=== PATIENT | male | born 1975 | race Two or more races ===

== ENCOUNTER → 2020-09-09 09:22 | Outpatient (BNVA) | payer SELFPAY | PROVIDERS: PCP Nurse Practitioner Family; Visit Provider Physician Assistant Medical | DX: Z02.79 Encounter for issue of other medical certificate (principal) ==

== ENCOUNTER 2022-02-13 09:02 | Inpatient (IN) | payer BC, SELFPAY ==
[2022-02-13] VITALS (7 sets, daily range): BP systolic 119–176; BP diastolic 79–103; PULSE 77–85; RESP 16–20; TEMP 36.9–37.1; O2SAT 95–97; BMI 33.9
--- NOTE | ~2022-02-13 | CT_ITS ---
EXAMINATION: CT ABDOMEN AND PELVIS WITH CONTRAST CLINICAL INFORMATION: lower abdominal pain. WBC 16,000 COMPARISON: None. TECHNIQUE: Multidetector volumetric imaging was performed from the superior aspect of the liver through the pubic symphysis following administration of 85 mL Omnipaque 300 intravenous contrast. Sagittal and coronal reformatted images were obtained on the technologist workstation.. This CT examination was performed using dose optimization techniques as appropriate, variously including the following: *Automated exposure control *Adjustment of mA and/or kV according to patient size (this includes techniques or standardized protocols for targeted exams where dose is matched to indication/reason for exam; i.e. extremities or head) *Use of iterative reconstruction technique DLP: 997 mGy-cm FINDINGS: LUNG BASES: Patchy airspace changes in the dependent lung bases more likely reflecting atelectasis. Atypical infectious etiology cannot be excluded. LIVER, GALLBLADDER, AND BILIARY TREE: Diffuse fatty infiltration the liver but no focal hepatic lesion nor biliary ductal dilatation. Mild focal fatty sparing adjacent to the gallbladder fossa. The gallbladder is unremarkable with no evidence of radiopaque gallstones, gallbladder wall thickening, or obvious pericholecystic inflammatory changes. PANCREAS: Unremarkable. SPLEEN: Unremarkable. ADRENAL GLANDS: Unremarkable. KIDNEYS AND URETERS: The kidneys are normal in size, shape, and attenuation. No hydronephrosis, hydroureter, or calculi seen. No perinephric stranding. BLADDER: Unremarkable. GASTROINTESTINAL TRACT: Few scattered colonic diverticula are noted. I do not appreciate any colonic wall thickening or pericolonic inflammatory changes. The appendix measures up to 0.7 cm in the appendiceal mid appendix. There is a small amount of periappendiceal fluid present. ABDOMINAL WALL: No significant hernia is appreciated. LYMPHOVASCULAR STRUCTURES: No lymphadenopathy. The aorta is unremarkable. PELVIC VISCERA: Unremarkable. OSSEOUS STRUCTURES: Unremarkable. CT/CT abdomen pelvis w IV con IMPRESSION: Appendix measures up to 0.7 cm in maximal diameter within the mid appendix. There is a small amount of periappendiceal fluid present. Early appendicitis cannot be excluded with this appearance and should be clinically correlated. Diffuse fatty infiltration liver. Patchy groundglass airspace changes at the visualized lung bases more likely due to atelectasis. Atypical infectious etiology considered less likely.
[2022-02-13 12:12] LABS: MANUAL DIFF FLAG NO
[2022-02-13 12:14] LABS: Basophils Percent Auto 0.2 % (0-2); Eosinophils Absolute Auto 0.1 X10*3/uL (0.0-0.4); Eosinophils Percent Auto 0.3 % (0-4); Hematocrit 51.3 % (42.0-52.0); Hemoglobin 17.6 g/dl (14.0-18.0); Imm Gran Abs Auto 0.09 X10*3/uL (0.00-0.03); Imm Gran Pct Auto 0.6 % (0.0-0.4); Lymphocytes Absolute Auto 1.8 X10*3/uL (1.2-4.9); Lymphocytes Percent Auto 11.2 % (20-40); Mean Corpuscular HGB Conc 34.3 g/dl (31.0-36.0); Mean Corpuscular Hemoglobin 27.2 pg (27.0-33.0); Mean Corpuscular Volume 79.4 fL (80.0-98.0); Mean Platelet Volume 10.5 fL (9.4-12.4); Monocytes Absolute Auto 0.7 X10*3/uL (0.1-1.2); Monocytes Percent Auto 4.4 % (2-11); Neutrophils Absolute Auto 13.6 x10*3/uL (2.0-8.3); Neutrophils Percent Auto 83.3 % (45-73); Platelet Count 234 X10*3/uL (160-400); Red Blood Count 6.46 X10*6/uL (4.60-5.80); Red Cell Distribution Width 13.8 % (11.0-16.0); White Blood Count 16.3 X10*3/uL (4.8-10.8)
[2022-02-13 12:29] LABS: COVID-19 Test Negative (Negative)
[2022-02-13 12:38] LABS: Alanine Aminotransferase 61 U/L (0-40); Albumin Level 4.9 g/dL (3.5-5.0); Alkaline Phosphatase 61 U/L (39-117); Anion Gap 18 (12-20); Aspartate Amino Transferase 44 U/L (5-37); Bilirubin Direct 0.4 mg/dL (0.0-0.5); Bilirubin Total 0.9 mg/dL (0.0-1.0); Blood Urea Nitrogen 13 mg/dL (9-16); Calcium 9.7 mg/dL (8.4-10.2); Carbon Dioxide 26 mmol/L (22-29); Chloride 103 mmol/L (96-108); Creatinine Clr Calc Pharmacy 116.6; Estimated Glomerular Filt Rate > 60; Glucose Random 130 mg/dL (60-115); Potassium 4.5 mmol/L (3.3-5.1); Sodium 142 mmol/L (135-145); Total Protein 7.7 g/dL (6.5-8.0)
[2022-02-13 14:21] LABS: Appearance Urine Clear; Color Urine Dark Yellow; Glucose Urine UA Negative (Negative); Leukocyte Esterase Urine Negative (Negative); Nitrite Urine Negative (Negative); PH 5.5 (5.0-9.0); Specific Gravity - Urine 1.025 (1.005-1.025); Urine Blood Negative (Negative); Urine Ketones Negative (Negative); Urine Protein Trace mg/dL (Neg-Trace)
--- NOTE | 2022-02-13 15:07 | ED_ITS ---
HPI - Abdominal Pain General Chief Complaint: Abdominal Pain Stated Complaint: abd pain from [facility] Time Seen by Provider: 02/13/22 13:35 Source: patient Mode of arrival: ambulatory Limitations: no limitations History of Present Illness HPI narrative: 46-year-old male healthy presents to ED for lower abdominal pain that began since 03:00. Patient states pain woke her from sleep. Patient denies any dysuria, hematuria, diarrhea, nausea or vomiting. Patient denies any fever or chills. Patient states 1st time having this pain. Related Data Allergies Allergy/AdvReac Type Severity Reaction Status Date / Time No Known Allergies Allergy Verified 02/13/22 13:41 Review of Systems Review of Systems Abdominal pain Yes all other systems are reviewed and are negative [facility] Social History Social History Patient Tobacco Use Status: Never used Tobacco Use of substances other than those prescribed or required for medical reasons: No Advance Directives: No Advance Directives Information Provided: No Physical Exam ED Vital Signs: Vital Signs - 24 hr 02/13/22 09:08 02/13/22 13:44 02/13/22 15:14 Temperature 98.6 F 98.7 F Pulse Rate 77 85 83 Respiratory Rate 16 18 20 Blood Pressure 176/103 H 151/95 H 119/79 Pulse Oximetry 97 97 97 Oxygen Delivery Method Room Air Room Air Room Air 02/13/22 16:37 Temperature 98.4 F Pulse Rate 79 Respiratory Rate 16 Blood Pressure 132/88 Pulse Oximetry 96 Oxygen Delivery Method Room Air BMI result Body Mass Index 33.9 Const General: cooperative, healthy appearing, comfortable, no acute distress, well developed, alert, awake and Physically active Orientation/consciousness: oriented to time and patient oriented x3 HENID Head: Yes normal to inspection, Yes No palpable skull fracture present, Yes normocephalic, Yes atraumatic and No abrasion Eyes General: appearance normal, both eyes and all related structures Neck Neck: Yes normal visual inspection and Yes full ROM Chest Chest palpation & inspection: normal inspection of the chest and normal palpation of entire chest wall Resp Effort & Inspection: normal respiratory effort and able to speak in complete sentences Auscultation: clear to auscultation bilaterally Cardio Jugular venous distension: no JVD Heart sounds: S1 normal heart sound present and S2 normal heart sound present GI Inspection: Yes normal to inspection and No abdominal wall ecchymosis Palpation (GI): Soft to palpation, not firm, Tenderness to palpation present (GI) in the LLQ and in the RLQ, no guarding and not rigid General: No CVA tenderness and Yes no CVA tenderness Back/Spine/Pelvis Back: no CVA tenderness, No CVA tenderness and No back tenderness Skin General skin exam: no rashes or lesions noted and elasticity normal Neuro General: oriented to time, patient oriented x3 and gait normal Cranial nerves: Yes CN's II-XII intact bilaterally Extrem General: Yes normal to inspection and Yes full ROM Psych Appearance: grossly normal, well kempt and not disheveled Course Course Course Narrative: Labs ordered and UA. Morphine ordered Reevaluation(s) Reevaluation #1: Or blood cell count 16,000. UA negative for blood or infection. Will send for CT scan. SInged out LEO Schmitt Time: 15:25 MDM - Abdominal Pain Lab Data Result diagrams: 02/13/22 12:08 02/13/22 12:08 Labs: Lab Results 02/13/22 02/13/22 02/13/22 Range/Units 12:08 12:08 12:08 WBC 16.3 H (4.8-10.8) X10*3/uL RBC 6.46 H (4.60-5.80) X10*6/uL Hgb 17.6 (14.0-18.0) g/dl Hct 51.3 (42.0-52.0) % MCV 79.4 L (80.0-98.0) fL MCH 27.2 (27.0-33.0) pg MCHC 34.3 (31.0-36.0) g/dl RDW 13.8 (11.0-16.0) % Plt Count 234 (160-400) X10*3/uL MPV 10.5 (9.4-12.4) fL Immature Gran % (Auto) 0.6 H (0.0-0.4) % Neut % (Auto) 83.3 H (45-73) % Lymph % (Auto) 11.2 L (20-40) % [place] % (Auto) 4.4 (2-11) % Eos % (Auto) 0.3 (0-4) % Baso % (Auto) 0.2 (0-2) % Lymph # (Auto) 1.8 (1.2-4.9) X10*3/uL [place] # (Auto) 0.7 (0.1-1.2) X10*3/uL Eos # (Auto) 0.1 (0.0-0.4) X10*3/uL Baso # (Auto) 0.0 (0.0-0.2) X10*3/uL Abs Immat Gran (auto) 0.09 H (0.00-0.03) X10*3/uL Absolute Neuts (auto) 13.6 H (2.0-8.3) x10*3/uL Absolute Nucleated RBC 0.000 (0.0-0.012) X10*3/uL Nucleated RBC % (auto) 0.0 (0.0-0.2) /100WBC Sodium 142 (135-145) mmol/L Potassium 4.5 (3.3-5.1) mmol/L Chloride 103 (96-108) mmol/L Carbon Dioxide 26 (22-29) mmol/L Anion Gap 18 (12-20) BUN 13 (9-16) mg/dL Creatinine 1.04 (0.5-1.4) mg/dL Estim Creat Clear Calc 116.6 Estimated GFR > 60 Random Glucose 130 H (60-115) mg/dL Lactic Acid (0.5-2.0) mmol/L Calcium 9.7 (8.4-10.2) mg/dL Total Bilirubin 0.9 (0.0-1.0) mg/dL Direct Bilirubin 0.4 (0.0-0.5) mg/dL AST 44 H (5-37) U/L ALT 61 H (0-40) U/L Alkaline Phosphatase 61 (39-117) U/L Total Protein 7.7 (6.5-8.0) g/dL Albumin 4.9 (3.5-5.0) g/dL Urine Color Urine Appearance Urine pH (5.0-9.0) Ur Specific [place] (1.005-1.025) Urine Protein (Neg-Trace) mg/dL Urine Glucose (UA) (Negative) mg/dL Urine Ketones (Negative) mg/dL Urine Blood (Negative) Urine Nitrite (Negative) Ur Leukocyte Esterase (Negative) COVID-19 (FÁTIMA) Negative (Negative) COVID-19 Clin Com See Note 02/13/22 02/13/22 Range/Units 14:12 14:14 WBC (4.8-10.8) X10*3/uL RBC (4.60-5.80) X10*6/uL Hgb (14.0-18.0) g/dl Hct (42.0-52.0) % MCV (80.0-98.0) fL MCH (27.0-33.0) pg MCHC (31.0-36.0) g/dl RDW (11.0-16.0) % Plt Count (160-400) X10*3/uL MPV (9.4-12.4) fL Immature Gran % (Auto) (0.0-0.4) % Neut % (Auto) (45-73) % Lymph % (Auto) (20-40) % [place] % (Auto) (2-11) % Eos % (Auto) (0-4) % Baso % (Auto) (0-2) % Lymph # (Auto) (1.2-4.9) X10*3/uL [place] # (Auto) (0.1-1.2) X10*3/uL Eos # (Auto) (0.0-0.4) X10*3/uL Baso # (Auto) (0.0-0.2) X10*3/uL Abs Immat Gran (auto) (0.00-0.03) X10*3/uL Absolute Neuts (auto) (2.0-8.3) x10*3/uL Absolute Nucleated RBC (0.0-0.012) X10*3/uL Nucleated RBC % (auto) (0.0-0.2) /100WBC Sodium (135-145) mmol/L Potassium (3.3-5.1) mmol/L Chloride (96-108) mmol/L Carbon Dioxide (22-29) mmol/L Anion Gap (12-20) BUN (9-16) mg/dL Creatinine (0.5-1.4) mg/dL Estim Creat Clear Calc Estimated GFR Random Glucose (60-115) mg/dL Lactic Acid 2.0 (0.5-2.0) mmol/L Calcium (8.4-10.2) mg/dL Total Bilirubin (0.0-1.0) mg/dL Direct Bilirubin (0.0-0.5) mg/dL AST (5-37) U/L ALT (0-40) U/L Alkaline Phosphatase (39-117) U/L Total Protein (6.5-8.0) g/dL Albumin (3.5-5.0) g/dL Urine Color Dark Yellow Urine Appearance Clear Urine pH 5.5 (5.0-9.0) Ur Specific [place] 1.025 (1.005-1.025) Urine Protein Trace (Neg-Trace) mg/dL Urine Glucose (UA) Negative (Negative) mg/dL Urine Ketones Negative (Negative) mg/dL Urine Blood Negative (Negative) Urine Nitrite Negative (Negative) Ur Leukocyte Esterase Negative (Negative) COVID-19 (FÁTIMA) (Negative) COVID-19 Clin Com Discharge Plan Discharge Clinical Impression: Abdominal pain Patient Disposition: Still a Patient
[2022-02-13] MEDS: ondansetron HCL 4 MG/2 ML VIAL IVPUSH ×2 (15:11→19:11)
[2022-02-13] MEDS: Morphine Sulfate 4 MG/ML CARTRIDGE IVPUSH ×2 (15:11→21:42)
[2022-02-13] MEDS: 0.9 % Sodium Chloride 1,000 ML 999 ML IV (15:12)
[2022-02-13] MEDS: iohexoL 350 MG/ML 100 ML INFUS..BTL IV (18:04)
[2022-02-13] MEDS: HYDROmorphone HCl 1 MG/ML SYRINGE IVPUSH (19:11)
[2022-02-13] MEDS: Piperacillin Sodium/Tazobactam 3.375 GM in 0.9 % Sodium Chloride 50 ML IV (19:11)
--- NOTE | 2022-02-13 19:18 | PC.NURSE ---
pt reporting 10/10 after initial morphine dose, provider aware. vss, medicated per provider order, 1L NS running. 20 G IV L forearm.
[2022-02-13] MEDS: Lactated Ringers 1,000 ML 100 ML IV (20:41)
--- NOTE | 2022-02-13 22:45 | PC.NURSE ---
RN-RN report given.
[2022-02-13] MEDS: Ketorolac Tromethamine 30 MG/ML VIAL IVPUSH (23:52)
[2022-02-13] MEDS: 0.9 % Sodium Chloride Flush 3 ML SYRINGE IVFLUSH (23:53)
[2022-02-14] VITALS (14 sets, daily range): BP systolic 101–164; BP diastolic 64–97; PULSE 65–85; RESP 12–18; TEMP 36.2–37.3; O2SAT 91–97
[2022-02-14] MEDS: Piperacillin Sodium/Tazobactam 3.375 GM in 0.9 % Sodium Chloride 50 ML IV ×2 (01:26→06:19)
[2022-02-14] MEDS: Morphine Sulfate 4 MG/ML CARTRIDGE IVPUSH ×2 (06:19→17:18)
[2022-02-14] MEDS: Lactated Ringers 1,000 ML 100 ML IV (06:20)
--- NOTE | 2022-02-14 07:19 | PM.HPGS ---
History of Present Illness History of Present Illness Date of Service: 02/16/22 Chief complaint: Acute appendicitis Narrative: Flaco Garnica is a 47 year old male who came to the emergency room yesterday afternoon because of abdominal pain. He says this started early yesterday morning at around 03:00. He said he woke up from sleep because of what he described as lower abdominal pain both on the left lower quadrant on the right lower quadrant.. This was constant and seemed to have persisted throughout the day. He denied any nausea or vomiting. He denies any diarrhea or constipation. He said he has never had any similar episodes in the past. He says his pain is currently on the right lower quadrant. He denies any fever or chills. He is prediabetic and is hypertensive. Review of Systems Constitutional: Constitutional: Denies chills and Denies fever(s) Cardiovascular: Cardiovascular: Denies chest pain, Denies dyspnea and Denies dyspnea on exertion Respiratory: Respiratory: Denies cough, Denies dyspnea and Denies dyspnea on exertion Gastrointestinal: Gastrointestinal: Denies hematochezia and Denies change in bowel habits Genitourinary: Genitourinary: Denies hematuria and Denies difficulty urinating Musculoskeletal: Musculoskeletal: Reports back pain and Denies limited range of motion Neurologic: Denies focal weakness and Denies convulsions Psychiatric: Psychiatric: Denies depression and Denies mood swings PMFSH Past Medical History Medical History (Updated 02/14/22 @ 07:22 by Jared Castanon MD) Hypertension Pre-diabetes Social History Social History Household Members: Significant Other and Children Housing: House Do you presently have visiting nurse or other home services: No Patient Tobacco Use Status: Never used Tobacco Use of substances other than those prescribed or required for medical reasons: No Currently Displaying Signs/Symptoms of Drug Intoxication Withdrawal: No Have you been hit, kicked, punched, or otherwise hurt by someone within the past year? If so, by whom?: No Do you feel safe in your current relationship?: Yes Is there a partner from a previous relationship who is making you feel unsafe now?: No Are you made to feel afraid or neglected: No Are you DNR?: No Advance Directives: No Advance Directives Information Provided: No Do you have thoughts of harming others: None Do you have a plan to hurt others: No Plan Recently lost weight without trying: Yes How much weight loss: 14-23 pounds Eating poorly because of decreased appetite: No Nutrition screen score: 4 Nutrition Risks: No Nutritional Risk service: No Current occupational status: employed Meds Allergies Allergy/AdvReac Type Severity Reaction Status Date / Time No Known Allergies Allergy Verified 02/13/22 13:41 Active Medications: Current Medications Heparin Sodium (Porcine) (Heparin Sodium,Porcine 5,000 Unit/Ml Vial) 5,000 unit SUBCUT Q8H [facility] Piperacillin Sod/Tazobactam (Sod 3.375 gm/ Sodium Chloride) 50 mls @ 100 mls/hr IV Q6H [facility] Last Admin: 02/14/22 06:19 Dose: 100 mls/hr Lactated Ringer's (Lr) 1,000 mls @ 100 mls/hr IV .Q10H [facility] Stop: 02/14/22 15:44 Last Admin: 02/14/22 06:20 Dose: 100 mls/hr Ketorolac Tromethamine (Ketorolac Tromethamine 30 Mg/Ml Vial) 30 mg IVPUSH Q6H PRN PRN Reason: Pain, Moderate (Pain Scale 4-6 Last Admin: 02/13/22 23:52 Dose: 30 mg Morphine Sulfate (Morphine Sulfate 4 Mg/Ml Cartridge) 4 mg IVPUSH Q4H PRN; Protocol PRN Reason: Pain, Severe (Pain Scale 7-10) Last Admin: 02/14/22 06:19 Dose: 4 mg Ondansetron HCl (Ondansetron Hcl 4 Mg/2 Ml Vial) 4 mg IVPUSH Q8H PRN PRN Reason: Nausea and Vomiting Sodium Chloride (0.9 % Sodium Chloride Flush 3 Ml Syringe) 3 ml IVFLUSH QSHIFT [facility] Last Admin: 02/13/22 23:53 Dose: 3 ml Home Medications Medication Instructions Recorded Confirmed Last Taken Type albuterol sulfate 90 mcg/actuation 2 puff inhalation Q6H PRN dyspnea 02/14/22 02/14/22 02/12/22 History aerosol inhaler amlodipine 5 mg tablet 1 tab PO DAILY 02/14/22 02/14/22 02/12/22 History fluticasone propionate 50 1 spray intranasal DAILY PRN 02/14/22 02/14/22 02/12/22 History mcg/actuation nasal Allergy Symptoms spray,suspension lisinopril 30 mg tablet 1 tab PO DAILY 02/14/22 02/14/22 02/12/22 History loratadine 10 mg tablet (Claritin) 10 mg PO DAILY 02/14/22 02/14/22 02/12/22 History metformin 500 mg tablet,extended 1 tab PO DAILY 02/14/22 02/14/22 02/12/22 History release 24 hr multivitamin 1 tab PO DAILY 02/14/22 02/14/22 02/12/22 History Physical Exam Vital Signs: Vital Signs: Last Vital Signs Temp 97.1 F 02/14/22 04:00 Pulse 75 02/14/22 04:00 Resp 18 02/14/22 04:00 BP 123/65 02/14/22 04:00 Pulse Ox 96 02/14/22 04:00 O2 Del Method 02/14/22 04:00 BMI result Body Mass Index 33.9 Const: General: comfortable and no acute distress Orientation/consciousness: patient oriented x3 Neck: Neck: Yes no lymphadenopathy Resp: Auscultation: clear to auscultation bilaterally Cardio: Rhythm: regular rhythm GI: Other: direct tenderness on right lower quadrant Palpation (GI): Soft to palpation, Tenderness to palpation present (GI), no guarding and not rigid Neuro: General: patient oriented x3 and no focal motor deficits Results Results Labs: Short CBC 02/13/22 Range/Units 12:08 WBC 16.3 H (4.8-10.8) X10*3/uL Hgb 17.6 (14.0-18.0) g/dl Hct 51.3 (42.0-52.0) % Plt Count 234 (160-400) X10*3/uL BMP 02/13/22 12:08 Sodium 142 Potassium 4.5 Chloride 103 Carbon Dioxide 26 BUN 13 Creatinine 1.04 Calcium 9.7 Liver Function 02/13/22 Range/Units 12:08 Total Bilirubin 0.9 (0.0-1.0) mg/dL Direct Bilirubin 0.4 (0.0-0.5) mg/dL AST 44 H (5-37) U/L ALT 61 H (0-40) U/L Alkaline Phosphatase 61 (39-117) U/L Albumin 4.9 (3.5-5.0) g/dL Urine 02/13/22 Range/Units 14:14 Urine Color Dark Yellow Urine Appearance Clear Urine pH 5.5 (5.0-9.0) Ur Specific [place] 1.025 (1.005-1.025) Urine Protein Trace (Neg-Trace) mg/dL Urine Glucose (UA) Negative (Negative) mg/dL Additional studies: Laboratory Results - last 24 hr 02/13/22 02/13/22 02/13/22 12:08 12:08 12:08 WBC 16.3 H RBC 6.46 H Hgb 17.6 Hct 51.3 MCV 79.4 L MCH 27.2 MCHC 34.3 RDW 13.8 Plt Count 234 MPV 10.5 Immature Gran % (Auto) 0.6 H Neut % (Auto) 83.3 H Lymph % (Auto) 11.2 L [place] % (Auto) 4.4 Eos % (Auto) 0.3 Baso % (Auto) 0.2 Lymph # (Auto) 1.8 [place] # (Auto) 0.7 Eos # (Auto) 0.1 Baso # (Auto) 0.0 Abs Immat Gran (auto) 0.09 H Absolute Neuts (auto) 13.6 H Absolute Nucleated RBC 0.000 Nucleated RBC % (auto) 0.0 Sodium 142 Potassium 4.5 Chloride 103 Carbon Dioxide 26 Anion Gap 18 BUN 13 Creatinine 1.04 Estim Creat Clear Calc 116.6 Estimated GFR > 60 Random Glucose 130 H Lactic Acid Calcium 9.7 Total Bilirubin 0.9 Direct Bilirubin 0.4 AST 44 H ALT 61 H Alkaline Phosphatase 61 Total Protein 7.7 Albumin 4.9 Urine Color Urine Appearance Urine pH Ur Specific [place] Urine Protein Urine Glucose (UA) Urine Ketones Urine Blood Urine Nitrite Ur Leukocyte Esterase COVID-19 (FÁTIMA) Negative COVID-19 Clin Com See Note 02/13/22 02/13/22 14:12 14:14 WBC RBC Hgb Hct MCV MCH MCHC RDW Plt Count MPV Immature Gran % (Auto) Neut % (Auto) Lymph % (Auto) [place] % (Auto) Eos % (Auto) Baso % (Auto) Lymph # (Auto) [place] # (Auto) Eos # (Auto) Baso # (Auto) Abs Immat Gran (auto) Absolute Neuts (auto) Absolute Nucleated RBC Nucleated RBC % (auto) Sodium Potassium Chloride Carbon Dioxide Anion Gap BUN Creatinine Estim Creat Clear Calc Estimated GFR Random Glucose Lactic Acid 2.0 Calcium Total Bilirubin Direct Bilirubin AST ALT Alkaline Phosphatase Total Protein Albumin Urine Color Dark Yellow Urine Appearance Clear Urine pH 5.5 Ur Specific [place] 1.025 Urine Protein Trace Urine Glucose (UA) Negative Urine Ketones Negative Urine Blood Negative Urine Nitrite Negative Ur Leukocyte Esterase Negative COVID-19 (FÁTIMA) COVID-19 Clin Com Laboratory Results WBC 16.3 X10*3/uL (4.8-10.8) H 02/13/22 12:08 RBC 6.46 X10*6/uL (4.60-5.80) H 02/13/22 12:08 Hgb 17.6 g/dl (14.0-18.0) 02/13/22 12:08 Hct 51.3 % (42.0-52.0) 02/13/22 12:08 MCV 79.4 fL (80.0-98.0) L 02/13/22 12:08 MCH 27.2 pg (27.0-33.0) 02/13/22 12:08 MCHC 34.3 g/dl (31.0-36.0) 02/13/22 12:08 RDW 13.8 % (11.0-16.0) 02/13/22 12:08 Plt Count 234 X10*3/uL (160-400) 02/13/22 12:08 MPV 10.5 fL (9.4-12.4) 02/13/22 12:08 Immature Gran % (Auto) 0.6 % (0.0-0.4) H 02/13/22 12:08 Neut % (Auto) 83.3 % (45-73) H 02/13/22 12:08 Lymph % (Auto) 11.2 % (20-40) L 02/13/22 12:08 [place] % (Auto) 4.4 % (2-11) 02/13/22 12:08 Eos % (Auto) 0.3 % (0-4) 02/13/22 12:08 Baso % (Auto) 0.2 % (0-2) 02/13/22 12:08 Lymph # (Auto) 1.8 X10*3/uL (1.2-4.9) 02/13/22 12:08 [place] # (Auto) 0.7 X10*3/uL (0.1-1.2) 02/13/22 12:08 Eos # (Auto) 0.1 X10*3/uL (0.0-0.4) 02/13/22 12:08 Baso # (Auto) 0.0 X10*3/uL (0.0-0.2) 02/13/22 12:08 Abs Immat Gran (auto) 0.09 X10*3/uL (0.00-0.03) H 02/13/22 12:08 Absolute Neuts (auto) 13.6 x10*3/uL (2.0-8.3) H 02/13/22 12:08 Absolute Nucleated RBC 0.000 X10*3/uL (0.0-0.012) 02/13/22 12:08 Nucleated RBC % (auto) 0.0 /100WBC (0.0-0.2) 02/13/22 12:08 Sodium 142 mmol/L (135-145) 02/13/22 12:08 Potassium 4.5 mmol/L (3.3-5.1) 02/13/22 12:08 Chloride 103 mmol/L (96-108) 02/13/22 12:08 Carbon Dioxide 26 mmol/L (22-29) 02/13/22 12:08 Anion Gap 18 (12-20) 02/13/22 12:08 BUN 13 mg/dL (9-16) 02/13/22 12:08 Creatinine 1.04 mg/dL (0.5-1.4) 02/13/22 12:08 Estim Creat Clear Calc 116.6 02/13/22 12:08 Estimated GFR > 60 02/13/22 12:08 Random Glucose 130 mg/dL (60-115) H 02/13/22 12:08 Lactic Acid 2.0 mmol/L (0.5-2.0) 02/13/22 14:12 Calcium 9.7 mg/dL (8.4-10.2) 02/13/22 12:08 Total Bilirubin 0.9 mg/dL (0.0-1.0) 02/13/22 12:08 Direct Bilirubin 0.4 mg/dL (0.0-0.5) 02/13/22 12:08 AST 44 U/L (5-37) H 02/13/22 12:08 ALT 61 U/L (0-40) H 02/13/22 12:08 Alkaline Phosphatase 61 U/L (39-117) 02/13/22 12:08 Total Protein 7.7 g/dL (6.5-8.0) 02/13/22 12:08 Albumin 4.9 g/dL (3.5-5.0) 02/13/22 12:08 Urine Color Dark Yellow 02/13/22 14:14 Urine Appearance Clear 02/13/22 14:14 Urine pH 5.5 (5.0-9.0) 02/13/22 14:14 Ur Specific [place] 1.025 (1.005-1.025) 02/13/22 14:14 Urine Protein Trace mg/dL (Neg-Trace) 02/13/22 14:14 Urine Glucose (UA) Negative mg/dL (Negative) 02/13/22 14:14 Urine Ketones Negative mg/dL (Negative) 02/13/22 14:14 Urine Blood Negative (Negative) 02/13/22 14:14 Urine Nitrite Negative (Negative) 02/13/22 14:14 Ur Leukocyte Esterase Negative (Negative) 02/13/22 14:14 COVID-19 (FÁTIMA) Negative (Negative) 02/13/22 12:08 COVID-19 Clin Com See Note 02/13/22 12:08 Impressions Abdomen/Pelvis CT 02/13/22 18:00 IMPRESSION: Appendix measures up to 0.7 cm in maximal diameter within the mid appendix. There is a small amount of periappendiceal fluid present. Early appendicitis cannot be excluded with this appearance and should be clinically correlated. Diffuse fatty infiltration liver. Patchy groundglass airspace changes at the visualized lung bases more likely due to atelectasis. Atypical infectious etiology considered less likely. Assessment and Plan (1) Acute appendicitis: Status: Acute He came in because of abdominal pain and currently his pain and tenderness is on the right lower quadrant. He had leukocytosis and his CAT scan shows mildly dilated appendix at the middle third with periappendiceal fluid and stranding suggestive of early acute appendicitis. I therefore had a long discussion with him about proceed with appendectomy versus nonoperative treatment with IV abx. I explained the technique of laparoscopic appendectomy and possible conversion to open. I reviewed the risks including but not limited to bleeding, infections, bowel injury, injury to the urinary tract, staple line leak, obstruction, risks of anesthesia, as well as the benefits and alternatives. He says he understands and wants to proceed because of his persistent pain. He otherwise is hemodynamically stable and does not appear septic. I have reviewed the CT images with Dr. Murillo of radiology., Quality Stroke Does the patient have a stroke diagnosis?: No VTE Prior VTE?: No VTE Risk Level:: Medical - moderate - high VTE Device Contraindication: N/A - Device Ordered VTE Drug Contraindication: N/A - Med Ordered Procedures Date of Service Date of Service: 02/14/22
--- NOTE | 2022-02-14 08:45 | PHA.MEDREC ---
Pharmacy Consult ? Medication Reconciliation Pharmacy has completed the medication reconciliation. Patient confirmed all medications. Angie Dewey, JoyD
[2022-02-14 08:52] LABS: Hemoglobin 13.8 g/dl (14.0-18.0); Mean Corpuscular HGB Conc 33.7 g/dl (31.0-36.0); Mean Corpuscular Hemoglobin 27.4 pg (27.0-33.0); Mean Corpuscular Volume 81.5 fL (80.0-98.0); Mean Platelet Volume 11.3 fL (9.4-12.4); Platelet Count 172 X10*3/uL (160-400); Red Blood Count 5.03 X10*6/uL (4.60-5.80); Red Cell Distribution Width 13.8 % (11.0-16.0); White Blood Count 6.1 X10*3/uL (4.8-10.8)
[2022-02-14 09:10] LABS: Anion Gap 15 (12-20); Blood Urea Nitrogen 16 mg/dL (9-16); Calcium 8.7 mg/dL (8.4-10.2); Carbon Dioxide 28 mmol/L (22-29); Chloride 103 mmol/L (96-108); Creatinine Clr Calc Pharmacy 105.2; Estimated Glomerular Filt Rate > 60; Glucose Random 122 mg/dL (60-115); Potassium 4.1 mmol/L (3.3-5.1); Sodium 142 mmol/L (135-145)
--- NOTE | 2022-02-14 10:25 | MHC.CM.PN ---
EMR REVIEWED, PT ADMITTE W/EARLY ACUTE APPENDICITIS W/PLAN FOR APPENDECTOMY, CM ATTEMPTED TO MEET W/PT HOWEVER PT OFF UNIT, CM TO REVISIT.
--- NOTE | 2022-02-14 11:19 | P.CONAN_ITS ---
HPI - Anesthesia Eval Consult details Narrative: for appendectomy PMFSH Active Problems Active Problems: All Active Problems (Updated 02/14/22 @ 07:22 by Jared Castanon MD) Hypertension (Acute) Pre-diabetes (Acute) Abdominal pain (Acute) Acute appendicitis (Acute) Past Medical History Medical History (Updated 02/14/22 @ 07:22 by Jared Castanon MD) Hypertension Pre-diabetes Family History Family history of problems with anesthesia: No Surgical History History of Problems with Anesthesia: No Social History Social History Household Members: Significant Other and Children Housing: House Do you presently have visiting nurse or other home services: No Patient Tobacco Use Status: Never used Tobacco Use of substances other than those prescribed or required for medical reasons: No Currently Displaying Signs/Symptoms of Drug Intoxication Withdrawal: No Have you been hit, kicked, punched, or otherwise hurt by someone within the past year? If so, by whom?: No Do you feel safe in your current relationship?: Yes Is there a partner from a previous relationship who is making you feel unsafe now?: No Are you made to feel afraid or neglected: No Are you DNR?: No Advance Directives: No Advance Directives Information Provided: No Do you have thoughts of harming others: None Do you have a plan to hurt others: No Plan Recently lost weight without trying: Yes How much weight loss: 14-23 pounds Eating poorly because of decreased appetite: No Nutrition screen score: 4 Nutrition Risks: No Nutritional Risk Meds Allergies Allergy/AdvReac Type Severity Reaction Status Date / Time No Known Allergies Allergy Verified 02/13/22 13:41 Active Medications: Current Medications Heparin Sodium (Porcine) (Heparin Sodium,Porcine 5,000 Unit/Ml Vial) 5,000 unit SUBCUT Q8H MAXIM Piperacillin Sod/Tazobactam (Sod 3.375 gm/ Sodium Chloride) 50 mls @ 100 mls/hr IV Q6H MAXIM Last Infusion: 02/14/22 07:40 Dose: Infused Lactated Ringer's (Lr) 1,000 mls @ 100 mls/hr IV .Q10H MAXIM Stop: 02/14/22 15:44 Last Infusion: 02/14/22 10:24 Dose: 0 mls/hr Ketorolac Tromethamine (Ketorolac Tromethamine 30 Mg/Ml Vial) 30 mg IVPUSH Q6H PRN PRN Reason: Pain, Moderate (Pain Scale 4-6 Last Admin: 02/13/22 23:52 Dose: 30 mg Morphine Sulfate (Morphine Sulfate 4 Mg/Ml Cartridge) 4 mg IVPUSH Q4H PRN; Protocol PRN Reason: Pain, Severe (Pain Scale 7-10) Last Admin: 02/14/22 06:19 Dose: 4 mg Ondansetron HCl (Ondansetron Hcl 4 Mg/2 Ml Vial) 4 mg IVPUSH Q8H PRN PRN Reason: Nausea and Vomiting Sodium Chloride (0.9 % Sodium Chloride Flush 3 Ml Syringe) 3 ml IVFLUSH [facility] Last Admin: 02/14/22 07:41 Dose: Not Given Home Medications Medication Instructions Recorded Confirmed Last Taken Type albuterol sulfate 90 mcg/actuation 2 puff inhalation Q6H PRN dyspnea 02/14/22 02/14/22 02/12/22 History aerosol inhaler amlodipine 5 mg tablet 1 tab PO DAILY 02/14/22 02/14/22 02/12/22 History fluticasone propionate 50 1 spray intranasal DAILY PRN 02/14/22 02/14/22 02/12/22 History mcg/actuation nasal Allergy Symptoms spray,suspension lisinopril 30 mg tablet 1 tab PO DAILY 02/14/22 02/14/22 02/12/22 History loratadine 10 mg tablet (Claritin) 10 mg PO DAILY 02/14/22 02/14/22 02/12/22 History metformin 500 mg tablet,extended 1 tab PO DAILY 02/14/22 02/14/22 02/12/22 History release 24 hr multivitamin 1 tab PO DAILY 02/14/22 02/14/22 02/12/22 History Exam Exam Date and Time: February 14, 2022 1119 Height,Weight and Vital Signs: Height 6 ft Weight 113.398 kg Last Vital Signs Temp 97.6 F 02/14/22 09:11 Pulse 66 02/14/22 09:11 Resp 18 02/14/22 09:11 BP 155/97 H 02/14/22 09:11 Pulse Ox 96 02/14/22 09:11 O2 Del Method 02/14/22 09:11 Pertinent Lab Results Pertinent Lab Results: Laboratory Tests 02/13/22 02/13/22 02/13/22 12:08 12:08 12:08 WBC 16.3 H RBC 6.46 H Hgb 17.6 Hct 51.3 MCV 79.4 L MCH 27.2 MCHC 34.3 RDW 13.8 Plt Count 234 MPV 10.5 Immature Gran % (Auto) 0.6 H Neut % (Auto) 83.3 H Lymph % (Auto) 11.2 L [place] % (Auto) 4.4 Eos % (Auto) 0.3 Baso % (Auto) 0.2 Lymph # (Auto) 1.8 Granite # (Auto) 0.7 Eos # (Auto) 0.1 Baso # (Auto) 0.0 Abs Immat Gran (auto) 0.09 H Absolute Neuts (auto) 13.6 H Absolute Nucleated RBC 0.000 Nucleated RBC % (auto) 0.0 Sodium 142 Potassium 4.5 Chloride 103 Carbon Dioxide 26 Anion Gap 18 BUN 13 Creatinine 1.04 Estim Creat Clear Calc 116.6 Estimated GFR > 60 Random Glucose 130 H Lactic Acid Calcium 9.7 Total Bilirubin 0.9 Direct Bilirubin 0.4 AST 44 H ALT 61 H Alkaline Phosphatase 61 Total Protein 7.7 Albumin 4.9 Urine Color Urine Appearance Urine pH Ur Specific [place] Urine Protein Urine Glucose (UA) Urine Ketones Urine Blood Urine Nitrite Ur Leukocyte Esterase COVID-19 (FÁTIMA) Negative COVID-19 Clin Com See Note 02/13/22 02/13/22 02/14/22 14:12 14:14 07:53 WBC 6.1 RBC 5.03 D Hgb 13.8 L D Hct 41.0 L D MCV 81.5 MCH 27.4 MCHC 33.7 RDW 13.8 Plt Count 172 D MPV 11.3 Immature Gran % (Auto) Neut % (Auto) Lymph % (Auto) [place] % (Auto) Eos % (Auto) Baso % (Auto) Lymph # (Auto) [place] # (Auto) Eos # (Auto) Baso # (Auto) Abs Immat Gran (auto) Absolute Neuts (auto) Absolute Nucleated RBC 0.000 Nucleated RBC % (auto) 0.0 Sodium Potassium Chloride Carbon Dioxide Anion Gap BUN Creatinine Estim Creat Clear Calc Estimated GFR Random Glucose Lactic Acid 2.0 Calcium Total Bilirubin Direct Bilirubin AST ALT Alkaline Phosphatase Total Protein Albumin Urine Color Dark Yellow Urine Appearance Clear Urine pH 5.5 Ur Specific [place] 1.025 Urine Protein Trace Urine Glucose (UA) Negative Urine Ketones Negative Urine Blood Negative Urine Nitrite Negative Ur Leukocyte Esterase Negative COVID-19 (FÁTIMA) COVID-19 Clin Com 02/14/22 07:53 WBC RBC Hgb Hct MCV MCH MCHC RDW Plt Count MPV Immature Gran % (Auto) Neut % (Auto) Lymph % (Auto) Granite % (Auto) Eos % (Auto) Baso % (Auto) Lymph # (Auto) Granite # (Auto) Eos # (Auto) Baso # (Auto) Abs Immat Gran (auto) Absolute Neuts (auto) Absolute Nucleated RBC Nucleated RBC % (auto) Sodium 142 Potassium 4.1 Chloride 103 Carbon Dioxide 28 Anion Gap 15 BUN 16 Creatinine 1.14 Estim Creat Clear Calc 105.2 Estimated GFR > 60 Random Glucose 122 H Lactic Acid Calcium 8.7 D Total Bilirubin Direct Bilirubin AST ALT Alkaline Phosphatase Total Protein Albumin Urine Color Urine Appearance Urine pH Ur Specific [place] Urine Protein Urine Glucose (UA) Urine Ketones Urine Blood Urine Nitrite Ur Leukocyte Esterase COVID-19 (FÁTIMA) COVID-19 Clin Com Airway Mallampati Class: II TM Dist: >3cm Neck ROM: Full Loose/Missing/Broken Teeth: No Heart: ok Lungs: ok Assessment and Plan Assessment Anesthesia Assessment: Anesthesia Plan Discussed and Chart Reviewed Final Anesthetic Review Family History of Problems with Anesthesia: No History of Problems with Anesthesia: No NPO: Yes ASA Class: II and Emergency Final Preanesthetic Review: No Changes in Pt Med Stat, Meds/Allgs Chart Reviewed, Consent Obtained/Reviewed and Anes Risks/Benef Reviewed Patient Risk: Intermediate Procedure Risk: Intermediate Anesthetic Plan Anesthetic Plan: GA and Agree w/ Assess. and Plan Disposition: Standard PACU
--- NOTE | 2022-02-14 11:59 | MHC.CLN ---
PT REPORTS 14-# WT LOSS ON NURSING ADMISSION ASSESSMENT CONFIRMED WITH PT UBW 240-250# PREVIOUS WT HX 234# CURRENT WT 249# ON ADMISSION BMI 33.9 OBESE FOR HT PT DOES NOT TRIGGER FOR SIGNIFICANT WT LOSS AT THIS TIME CONTINUE CURRENT PLAN
--- NOTE | 2022-02-14 12:26 | P.OP_ITS ---
Operative Note Operative Note Date of Service: 02/14/22 Narrative: Preop diagnosis: Acute appendicitis Postop diagnosis: The same Procedure: Laparoscopic appendectomy Surgeon: Jared Castanon MD certified ophthalmic assistant: JULIÁN Bhandari The patient is a 47-year-old male admitted because of right lower quadrant pain and tenderness with leukocytosis last night. He has CT scan reviewed with the radiologist and there appeared to be periappendiceal fluid along with thickening of the mid part of the appendix. I therefore explained to him that we can proceed with laparoscopic appendectomy acute appendicitis. The other option is to continue IV antibiotic treatment. He said that he would rather proceed with appendectomy. I understood the technique of laparoscopic appendectomy and was the risks benefits, and alternatives. He was brought to the operating room. He was placed supine under general anesthesia via endotracheal tube. A Ruby catheter was inserted. The abdomen was prepped and draped in the usual sterile fashion. a surgical time-out was done. The patient received Cefotan 2 g IV preoperatively. I made a short umbilical incision using blade 15. This was carried down through the full-thickness of the skin subcutaneous fat although with the fasci a. The fascia was incised. The peritoneum was entered. Through this incision a Dusty port introduced. Pneumoperitoneum was introduced to a pressure of 15 mm hg. From here on the rest of procedure was done under vision with the laparoscope. We used a 5 mm 30 degree laparoscope for this procedure. With laparoscopic visualization a proceeded to insert 5 mm ports in the left lower quadrant and the suprapubic margin via small stab incisions. The patient was placed in head-down and [id number] position. Graspers were used to reflect the small bowel loops away from the right lower quadrant until I was able to visualize the cecum. Following the cecum I was able to see the appendix. The appendix was long and part of this was adherent to some small bowel loops. We had divided fine adhesions using the LigaSure. This allowed us to free up the entire appendix. The appendix was retracted to the anterior abdominal wall to put the on stretch. I was able to visualize the base of the appendix. I created a mesenteric window by dividing the mesoappendix with the LigaSure. The base was well-defined be this was actually not inflamed at the base. The appendix did have some jeffrey appendiceal fluid but there was no obvious induration nor significant congestion. I positioned a GI 30 minute stapler across the base of the pending. This was fired at appendix was transected. Completed transection of the appendix by dividing the attached mesentery. The appendix was then retrieved through an endobag through the umbilical incision. I reinserted all ports and insufflated. I examined all 4 quadrants. There was no other pathology. However, there seemed to be some mild erythema of the small bowel loops the right lower quadrant adjacent to where the appendix was. There was no evidence of any bowel injury or any other pathology. ed the omentum to position this right lower quadrant. I observed the area of dissection of the right lower quadrant for hemostasis. The staple line appeared intact. I pull . Once hemostasis was confirmed, I proceeded to then desufflate through the port sites. I removed all ports under vision with the umbilical port removed last. The fascia of the umbilical incision was closed with [id number] Dexon 0 stitch. Skin closure was achieved on all incisions using Dexon 4-0 subcuticular running sutures. Steri-Strips and dressings were applied. All incisions were infiltrated with Marcaine 0.5% for postop analgesia. The procedure was completed The patient tolerated procedure well. There were no immediate complications. Estimated blood loss was less than 20 cc The patient was extubated without difficulty and transferred to the recovery room with stable vital signs..
--- NOTE | 2022-02-14 12:47 | PM.OP ---
Brief Operative Note Date of Service: 02/14/22 <Risa Bhandari PA-C - Last Filed: 02/14/22 12:48> Pre-op diagnosis: acute appendicitis <Risa Bhandari PA-C - Last Filed: 02/14/22 12:48> Post-op diagnosis: same <Risa Bhandari PA-C - Last Filed: 02/14/22 12:48> Procedure: laparoscopic appendectomy <Risa Bhandari PA-C - Last Filed: 02/14/22 12:48> Surgeon: IAN TALLEY MD <Risa Bhandari PA-C - Last Filed: 02/14/22 12:48> Anesthesia: GETA <Risa Bhandari PA-C - Last Filed: 02/14/22 12:48> Was an Airplane Dispatch Clerk used for this Procedure?: Yes <Risa Bhandari PA-C - Last Filed: 02/14/22 12:48> No <Ian Talley MD - Last Filed: 02/14/22 15:06> Airplane Dispatch Clerk: Risa Bhandari <Risa Bhandari PA-C - Last Filed: 02/14/22 12:48> Estimated blood loss (mL): 20 <Risa Bhandari PA-C - Last Filed: 02/14/22 12:48> Urine output (mL): 75 <Risa Bhandari PA-C - Last Filed: 02/14/22 12:48> Pathology: other (appendix) <SAMANTHA Gallegos Last Filed: 02/14/22 12:48> Condition: stable <Risa Bhandari PA-C - Last Filed: 02/14/22 12:48> Disposition: PACU <SAMANTHA Gallegos Last Filed: 02/14/22 12:48>
[2022-02-14] MEDS: HYDROmorphone HCl 0.5 MG/0.5 ML SYRINGE 1 MG IVPUSH ×2 (12:52→13:27)
--- NOTE | 2022-02-14 15:06 | PM.EVENT ---
Event Note Date of Service: 02/14/22 Event Note: seen postop complaints of pain on incisions looks comfortable otherwise stable vital signs abdomen soft he is asking for food on clear liquids pain management patient's updated at bedside
[2022-02-14] MEDS: 0.9 % Sodium Chloride Flush 3 ML SYRINGE IVFLUSH ×2 (17:26→19:33)
[2022-02-14] MEDS: Heparin Sodium,Porcine 5,000 UNIT/ML VIAL 5000 UNIT SUBCUT (19:32)
[2022-02-14] MEDS: oxyCODONE HCl Immed Release 5 MG TABLET 10 MG PO (19:52)
[2022-02-14] MEDS: Acetaminophen 325 MG TABLET 650 MG PO (19:52)
[2022-02-15] VITALS: BP 142/89; PULSE 65; RESP 18; TEMP 36.8; O2SAT 97
[2022-02-15] MEDS: Morphine Sulfate 4 MG/ML CARTRIDGE IVPUSH ×2 (00:11→19:33)
[2022-02-15] MEDS: Heparin Sodium,Porcine 5,000 UNIT/ML VIAL 5000 UNIT SUBCUT ×3 (03:41→19:29)
[2022-02-15] MEDS: oxyCODONE HCl Immed Release 5 MG TABLET 10 MG PO ×4 (03:42→18:37)
[2022-02-15] MEDS: Acetaminophen 325 MG TABLET 650 MG PO ×3 (03:42→18:37)
[2022-02-15 04:00] VITALS: BP 145/89; PULSE 64; RESP 18; TEMP 36.6; O2SAT 95
[2022-02-15 07:22] VITALS: BP 136/84; PULSE 73; RESP 18; TEMP 37.1; O2SAT 96
[2022-02-15] MEDS: amLODIPine Besylate 5 MG TABLET PO (08:34)
[2022-02-15] MEDS: Loratadine 10 MG TABLET PO (08:34)
[2022-02-15] MEDS: lisinopriL 10 MG TABLET 30 MG PO (08:34)
--- NOTE | 2022-02-15 08:34 | PM.PNGS ---
Subjective Subjective Date of Service: 02/15/22 <Risa Bhandari PA-C - Last Filed: 02/15/22 08:40> 02/15/22 <Jared Castanon MD - Last Filed: 02/15/22 16:03> Interval history: Has some abdominal pain at umbilical incision site. Mostly c/o right posterior leg pain/numbness. Is able to ambulate but using walker. Also had this prior to surgery. Tolerating clear liquids and wants to eat. <Risa Bhandari PA-C - Last Filed: 02/15/22 08:40> Physical Exam Vital Signs: Vital Signs: Last Vital Signs Temp 98.8 F 02/15/22 07:22 Pulse 73 02/15/22 07:22 Resp 18 02/15/22 07:22 BP 136/84 02/15/22 07:22 Pulse Ox 96 02/15/22 07:22 O2 Del Method 02/15/22 07:22 O2 Flow Rate 3 02/14/22 13:29 BMI result Body Mass Index 33.9 <Risa Bhandari PA-C - Last Filed: 02/15/22 08:40> Const: General: comfortable, no acute distress and alert <SAMANTHA Gallegos Last Filed: 02/15/22 08:40> Orientation/consciousness: patient oriented x3 <Risa Bhandari PA-C - Last Filed: 02/15/22 08:40> Resp: Effort & Inspection: normal respiratory effort <Risa Bhandari PA-C - Last Filed: 02/15/22 08:40> Cardio: Rate: regular rate <Risa Bhandari PA-C - Last Filed: 02/15/22 08:40> GI: Inspection: No distended and Yes incision (dressings c/d/i) <SAMANTHA Gallegos Last Filed: 02/15/22 08:40> Palpation (GI): Soft to palpation, Tenderness to palpation present (GI), no guarding and not rigid <SAMANTHA Gallegos Last Filed: 02/15/22 08:40> Percussion: Yes normal to percussion <SAMANTHA Gallegos Last Filed: 02/15/22 08:40> Skin: General skin exam: no rashes or lesions noted <SAMANTHA Gallegos Last Filed: 02/15/22 08:40> Neuro: General: patient oriented x3 and moves all extremities <Risa Bhandari PA-C - Last Filed: 02/15/22 08:40> Extrem: General: Yes no clubbing, cyanosis or edema, Yes no pedal edema and Yes no calf tenderness <Risa Bhandari PA-C - Last Filed: 02/15/22 08:40> Objective Data Active Medications Acetaminophen (Acetaminophen 325 Mg Tablet) 650 mg PO Q6H PRN PRN Reason: fever, pain Last Admin: 02/15/22 03:42 Dose: 650 mg Documented By: ORLIN Albuterol Sulfate (Albuterol Sulfate 90 Mcg 8 Gm Inhaler) 2 puff INHALE Q6H PRN PRN Reason: dyspnea Amlodipine Besylate (Amlodipine Besylate 5 Mg Tablet) 5 mg PO DAILY [facility]; Protocol Fluticasone Propionate (Fluticasone Propionate Nasal 16 Gm [place]) 1 spray NOSTRIL-B DAILY PRN PRN Reason: Allergy Symptoms Heparin Sodium (Porcine) (Heparin Sodium,Porcine 5,000 Unit/Ml Vial) 5,000 unit SUBCUT Q8H MAXIM Last Admin: 02/15/22 03:41 Dose: 5,000 unit Documented By: ORLIN Ketorolac Tromethamine (Ketorolac Tromethamine 30 Mg/Ml Vial) 30 mg IVPUSH Q6H PRN PRN Reason: Pain, Moderate (Pain Scale 4-6 Last Admin: 02/13/22 23:52 Dose: 30 mg Documented By: RHONDA Lisinopril (Lisinopril 10 Mg Tablet) 30 mg PO DAILY [facility]; Protocol Loratadine (Loratadine 10 Mg Tablet) 10 mg PO DAILY [facility] Morphine Sulfate (Morphine Sulfate 4 Mg/Ml Cartridge) 4 mg IVPUSH Q4H PRN; Protocol PRN Reason: Pain, Severe (Pain Scale 7-10) Last Admin: 02/15/22 00:11 Dose: 4 mg Documented By: OSMIN Ondansetron HCl (Ondansetron Hcl 4 Mg/2 Ml Vial) 4 mg IVPUSH Q8H PRN PRN Reason: Nausea and Vomiting Oxycodone HCl (Oxycodone Hcl Immed Release 5 Mg Tablet) 10 mg PO Q4H PRN PRN Reason: Pain, Moderate (Pain Scale 4-6 Last Admin: 02/15/22 03:42 Dose: 10 mg Documented By: ORLIN Sodium Chloride (0.9 % Sodium Chloride Flush 3 Ml Syringe) 3 ml IVFLUSH QSHIFT [facility] Last Admin: 02/14/22 19:33 Dose: 3 ml Documented By: OSMIN <SAMANTHA Gallegos Last Filed: 02/15/22 08:40> Labs CBC & Chem 7: : 02/14/22 07:53 02/14/22 07:53 <Risa Bhandari PA-C - Last Filed: 02/15/22 08:40> Labs: Laboratory Results - last 24 hr 02/14/22 02/14/22 07:53 07:53 MCV 81.5 MCH 27.4 MCHC 33.7 RDW 13.8 Plt Count 172 D MPV 11.3 Absolute Nucleated RBC 0.000 Nucleated RBC % (auto) 0.0 Anion Gap 15 Estim Creat Clear Calc 105.2 Estimated GFR > 60 Random Glucose 122 H Calcium 8.7 D <SAMANTHA Gallegos Last Filed: 02/15/22 08:40> Microbiology Microbiology Results: Microbiology 02/13/22 14:13 Blood Culture - Preliminary Blood - Venous No growth after 24 hours. 02/13/22 14:13 Blood Culture - Preliminary Blood - Venous No growth after 24 hours. <Risa Bhandari PA-C - Last Filed: 02/15/22 08:40> Procedures Date of Service Date of Service: 02/15/22 <SAMANTHA Gallegos Last Filed: 02/15/22 08:40> Progress Note: A&P Assessment and plan (1) Acute appendicitis: Status: Acute <SAMANTHA Gallegos Last Filed: 02/15/22 08:40> Assessment and Plan: Complains of back pain, right lower back all the way to the buttock and thigh He says he has had this since preop Exam does not reveal any motor or sensory deficits Tolerating clear liquids Wants to eat - hungry Advance diet as tolerated I explained to him that depending on his back pain, he may be able to be discharged later today Advised ambulation for now Seen and examined independently - agree with JULIÁN Bhandari <Jared Castanon MD - Last Filed: 02/15/22 16:03> (2) Pre-diabetes: Status: Acute <Risa Bhandari PA-C - Last Filed: 02/15/22 08:40> (3) S/P laparoscopic appendectomy: Status: Acute <Risa Bhandari PA-C - Last Filed: 02/15/22 08:40> Assessment and Plan: 47 year old male who was admitted with acute appendicitis ow POD #1 s/p lap appy. Doing fairly well post op, c/o mostly right leg pain/numbness. VSS. Abd exam benign with appropriate post op tenderness, dressings c/d/i. Will advance to solid diet today. Encouraged OOB/ambulate. Pain may be due to prolonged bed rest due to illness. Will reassess later on, if tolerating solid diet and no difficulty ambulating, stable for discharge to home. Patient comfortable with plan. Educated no heavy lifting, f/u in office in 2 weeks. <Risa Bhandari PA-C - Last Filed: 02/15/22 08:40> Time Spent With Patient Time: Total time spent is greater than 50% in coordination of care (as documented) at patient's floor/unit and/or counseling patient: <Risa Bhandari PA-C - Last Filed: 02/15/22 08:40> Quality Stroke Does the patient have a stroke diagnosis?: No <Risa Bhandari PA-C - Last Filed: 02/15/22 08:40> VTE Prior VTE?: No <Risa Bhandari PA-C - Last Filed: 02/15/22 08:40> VTE Risk Level:: Medical - moderate - high <SAMANTHA Gallegos Last Filed: 02/15/22 08:40> VTE Device Contraindication: N/A - Device Ordered <Risa Bhandari PA-C - Last Filed: 02/15/22 08:40> VTE Drug Contraindication: N/A - Med Ordered <Risa Bhandari PA-C - Last Filed: 02/15/22 08:40>
[2022-02-15] MEDS: 0.9 % Sodium Chloride Flush 3 ML SYRINGE IVFLUSH ×3 (08:35→19:30)
--- NOTE | 2022-02-15 09:12 | PM.DS ---
DS: Providers Provider Date of Service: 02/16/22 Date of admission: 02/13/22 19:16 Primary care physician: Renae Garzon NP Attending physician on admission: Jared Castanon Attending physician on discharge: Jared Castanon DS: Diagnosis Discharge Diagnosis (1) Acute appendicitis: Status: Acute DS: Summary Hospital Course Hospital Course: BRIEF HPI: Flaco Garnica is a 47 year old male who came to the emergency room yesterday afternoon because of abdominal pain.? He says this started early yesterday morning at around 03:00.? He said he woke up from sleep because of what he described as lower abdominal pain? both on the left lower quadrant on the right lower quadrant.? This was constant and seemed to have persisted throughout the day and eventuyally localized to the RLQ.? He denied any nausea or vomiting.? He denies any diarrhea or constipation.? He said he has never had any similar episodes in the past. He had a leukocytosis of [address] scan showed a mildly dilated appendix with periappendiceal fluid and stranding suggestive of early acute appendicitis.? HOSPITAL COURSE: The patient was admitted to the surgical service for treatment of the acute appendicitis. Treatment options were discussed and he elected to proceed with surgery. He was added onto the OR schedule for that morning. He was kept NPO, on IVF and IV zosyn. On 02/14/22, a laparoscopic appendectomy was performed by Dr. Castanon without complication. The patient tolerated the procedure well and was admitted to the medical/surgical floor for observation. He had an uncomplicated recovery course. On POD #1, he had moderate incisional pain relieved by analgesics. He was tolerating clear liquids. His abdomen was benign with appropriate post op tenderness and dressings c/d/i. He felt overall well. He was advanced to a solid diet. He was reassessed later in the day and did not quite feel ready for discharge. The following day, he was tolerating his diet without N/V and ambulating without difficulty. His pain was well controlled. His incisions were clean. He felt ready for discharge. He was discharged on 02/16/22 in stable condition. Status at Discharge Functional status at discharge: independent ambulation Overall status at discharge: patient is progressing back to baseline Time Spent with Patient Time attestation: Total time spent providing and/or coordinating discharge services: Discharge coordination time: Greater than 30 minutes Quality: Safe Use of Opioids Does Pt have an Active Cancer Diagnosis on the Problem List?: No Quality: Stroke Does the patient have a stroke diagnosis?: No Physical Exam Vital Signs: Vital Signs: Last Vital Signs Temp 98.8 F 02/15/22 07:22 Pulse 73 02/15/22 07:22 Resp 18 02/15/22 07:22 BP 136/84 02/15/22 07:22 Pulse Ox 96 02/15/22 07:22 O2 Del Method 02/15/22 07:22 O2 Flow Rate 3 02/14/22 13:29 BMI result Body Mass Index 33.9 Const: General: comfortable, no acute distress and alert Orientation/consciousness: patient oriented x3 Resp: Effort & Inspection: normal respiratory effort GI: Inspection: No distended and Yes incision (clean) Palpation (GI): Soft to palpation and Tenderness to palpation present (GI) (mild) Skin: General skin exam: no rashes or lesions noted Neuro: General: patient oriented x3 Extrem: General: Yes no clubbing, cyanosis or edema DS: Data Data Completed and Pending Pending studies at discharge: Pending at discharge 02/14/22 12:16 Surgical [PTH] Routine Labs on day of discharge: Preliminary micro results at discharge 02/13/22 14:13 Blood Culture - Preliminary Blood - Venous No growth after 24 hours. 02/13/22 14:13 Blood Culture - Preliminary Blood - Venous No growth after 24 hours. Discharge Plan Discharge Anticipated Discharge Date/Time: 02/15/22 12:50 Patient Disposition: Home, Self-Care Discharge Diagnosis: acute appendicitis Referrals: Renae Garzon NP [Primary Care Provider] - 1 Week Jared Castanon MD [Physician] - 2 Weeks Discharge Medications: New oxycodone 5 mg tablet 5 mg PO Q4H PRN (Reason: pain (scale score 7-10)) Qty: 24 0RF Rx Instructions: Partial Fill upon patient request. Continued multivitamin Tablet 1 tab PO DAILY amlodipine 5 mg tablet 1 tab PO DAILY lisinopril 30 mg tablet 1 tab PO DAILY albuterol sulfate 90 mcg/actuation HFA aerosol inhaler 2 puff INHALATION Q6H PRN (Reason: dyspnea) fluticasone propionate 50 mcg/actuation Roberts,Suspension 1 spray INTRANASAL DAILY PRN (Reason: Allergy Symptoms) Rx Instructions: administer into each nostril metformin 500 mg tablet extended release 24 hr 1 tab PO DAILY loratadine [Claritin] 10 mg Tablet 10 mg PO DAILY Discharge Orders: Discharge Order (Routine); Ordered 02/16/22 Ordered By: Risa Bhandari Diet: Diabetic diet Activity on Discharge: No heavy lifting Stand Alone Forms: Patient Portal Discharge page Activity Restrictions/Additional Instructions: If the incision area is tender, you may apply an ice pack for short intervals (No more than 20 minutes on, followed by at least 20 minutes off). Do not apply heat. Do not use creams, lotions, or topical antibiotics unless instructed to do so by your surgeon. These can cause infection or allergic reaction. Ok to shower 24 hours after your surgery. Remove bandaids in 2 days and replace. You have steri strips (small white cloth strips) covering your incision- these will fall off ~1 week. Follow up in office with Dr. Castanon in 2 weeks. ([phone]) No heavy lifting (>10-20lbs) or strenuous activity! Call Your Doctor If: -Your temperature exceeds 101.5? F -You experience excessive pain or swelling -You have an unexpected reaction to medication -You have excessive bleeding -You experience continued vomiting/nausea -Your incision begins to separate -Your incision shows signs of infection such as increased redness, swelling, excessive pain, drainage (light blood or clear fluid is normal) or heat Care Plan Goals: Return to baseline health and gradual return to activity following recovery period. Health Concerns: acute appendicitis s/p lap appy HTN prediabetic Plan of Treatment: S/p lap appy F/u in office in 2 weeks Assessment: Doing well post op.
--- NOTE | 2022-02-15 11:11 | HO.POSTANES ---
Post Anesthesia Evaluation Post Anesthesia Evaluation Vital Signs: Vital Signs Temp Pulse Resp BP Pulse Ox O2 Del Method 02/15/22 07:22 98.8 F 73 18 136/84 96 Room Air 02/15/22 04:00 97.8 F 64 18 145/89 H 95 Room Air 02/15/22 00:00 98.2 F 65 18 142/89 H 97 Room Air Anesthesia: General Endotracheal-GETA Mental Status: Awake Pain Control: Satisfactory Nausea/Vomiting: None Hydration: Adequate Anesthesia-Related Issues: No Anes. Related Issues
[2022-02-15 11:24] VITALS: BP 130/80; PULSE 72; RESP 17; TEMP 37; O2SAT 96
[2022-02-15 15:23] VITALS: BP 116/72; PULSE 66; RESP 17; TEMP 36.4; O2SAT 95
--- NOTE | 2022-02-15 15:42 | MHC.CM.PN ---
CM MET W/PT WHO REPORTS HE LIVES W/GF AND 2 DTRS, PT IS INDEP W/ALL CARE AND DENIES USE OF DME/SERVICES, PT DENIES BEING VACCINATED FOR COVID, PCP VERIFIED [facility] AND PT EDUCATED ON AND DECLINES TO COMPLETE A HCP. ANTIC PT WILL D/C HOME NO SERVICES W/GF FOR TRANSPORT.
--- NOTE | 2022-02-15 16:03 | PM.EVENT ---
Event Note Date of Service: 02/15/22 Event Note: Seen earlier on afternoon rounds Says tolerating diet Back pain seems to be better He has been able to walk around without any difficulty No motor or sensory deficits on the right leg Abdomen remained soft Stable vital signs He says that he is not comfortable with going home today as he says he will be alone most of the time He states that he plans on home tomorrow instead Looks well otherwise
[2022-02-15 19:08] VITALS: BP 139/81; PULSE 67; RESP 17; TEMP 36.7; O2SAT 95
[2022-02-16] VITALS: BP 119/75; PULSE 61; RESP 18; TEMP 36.3; O2SAT 96
[2022-02-16 07:33] VITALS: BP 157/90; PULSE 65; RESP 18; TEMP 36.1; O2SAT 96
[2022-02-16] MEDS: lisinopriL 10 MG TABLET 30 MG PO (07:41)
[2022-02-16] MEDS: Loratadine 10 MG TABLET PO (07:42)
[2022-02-16] MEDS: Acetaminophen 325 MG TABLET 650 MG PO (07:42)
[2022-02-16] MEDS: amLODIPine Besylate 5 MG TABLET PO (07:42)
[2022-02-16] MEDS: 0.9 % Sodium Chloride Flush 3 ML SYRINGE IVFLUSH (07:43)
--- NOTE | 2022-02-16 08:10 | P.PNGS_ITS ---
Subjective Subjective Date of Service: 02/16/22 <Risa Bhandari PA-C - Last Filed: 02/16/22 08:13> 02/16/22 <Jared Castanon MD - Last Filed: 02/16/22 08:29> Interval history: Feels much better this morning. Tolerating solid diet. Pain well controlled. OOB and ambulating without difficulty. Not using walker anymore. Denies back pain. <Risa Bhandari PA-C - Last Filed: 02/16/22 08:13> Physical Exam Vital Signs: Vital Signs: Last Vital Signs Temp 97.0 F 02/16/22 07:33 Pulse 65 02/16/22 07:33 Resp 18 02/16/22 07:33 BP 157/90 H 02/16/22 07:33 Pulse Ox 96 02/16/22 07:33 O2 Del Method 02/16/22 07:33 O2 Flow Rate 3 02/14/22 13:29 BMI result Body Mass Index 33.9 <Risa Bhandari PA-C - Last Filed: 02/16/22 08:13> Const: General: comfortable, no acute distress and alert <Risa Bhandari PA-C - Last Filed: 02/16/22 08:13> Orientation/consciousness: patient oriented x3 <SAMANTHA Gallegos Last Filed: 02/16/22 08:13> Resp: Effort & Inspection: normal respiratory effort <Risa Bhandari PA-C - Last Filed: 02/16/22 08:13> GI: Inspection: No distended and Yes incision (clean) <Risa Bhandari PA-C - Last Filed: 02/16/22 08:13> Palpation (GI): Soft to palpation, Tenderness to palpation present (GI) (mild, incisional), no guarding and not rigid <SAMANTHA Gallegos Last Filed: 02/16/22 08:13> Skin: General skin exam: no rashes or lesions noted <SAMANTHA Gallegos Last Filed: 02/16/22 08:13> Neuro: General: patient oriented x3 <SAMANTHA Gallegos Last Filed: 02/16/22 08:13> Extrem: General: Yes no clubbing, cyanosis or edema <Risa Bhandari PA-C - Last Filed: 02/16/22 08:13> Objective Data Active Medications Acetaminophen (Acetaminophen 325 Mg Tablet) 650 mg PO Q6H PRN PRN Reason: fever, pain Last Admin: 02/16/22 07:42 Dose: 650 mg Documented By: SOTO Albuterol Sulfate (Albuterol Sulfate 90 Mcg 8 Gm Inhaler) 2 puff INHALE Q6H PRN PRN Reason: dyspnea Amlodipine Besylate (Amlodipine Besylate 5 Mg Tablet) 5 mg PO DAILY [facility]; Protocol Last Admin: 02/16/22 07:42 Dose: 5 mg Documented By: SOTO Fluticasone Propionate (Fluticasone Propionate Nasal 16 Gm [place]) 1 spray NOSTRIL-B DAILY PRN PRN Reason: Allergy Symptoms Heparin Sodium (Porcine) (Heparin Sodium,Porcine 5,000 Unit/Ml Vial) 5,000 unit SUBCUT Q8H [facility] Last Admin: 02/16/22 05:11 Dose: Not Given Documented By: CHELA Non-Admin Reason: Patient Refused Ketorolac Tromethamine (Ketorolac Tromethamine 30 Mg/Ml Vial) 30 mg IVPUSH Q6H PRN PRN Reason: Pain, Moderate (Pain Scale 4-6 Last Admin: 02/13/22 23:52 Dose: 30 mg Documented By: RHONDA Lisinopril (Lisinopril 10 Mg Tablet) 30 mg PO DAILY [facility]; Protocol Last Admin: 02/16/22 07:41 Dose: 30 mg Documented By: SOTO Loratadine (Loratadine 10 Mg Tablet) 10 mg PO DAILY [facility] Last Admin: 02/16/22 07:42 Dose: 10 mg Documented By: SOTO Morphine Sulfate (Morphine Sulfate 4 Mg/Ml Cartridge) 4 mg IVPUSH Q4H PRN; Protocol PRN Reason: Pain, Severe (Pain Scale 7-10) Last Admin: 02/15/22 19:33 Dose: 4 mg Documented By: CHELA Ondansetron HCl (Ondansetron Hcl 4 Mg/2 Ml Vial) 4 mg IVPUSH Q8H PRN PRN Reason: Nausea and Vomiting Oxycodone HCl (Oxycodone Hcl Immed Release 5 Mg Tablet) 10 mg PO Q4H PRN PRN Reason: Pain, Moderate (Pain Scale 4-6 Last Admin: 02/15/22 18:37 Dose: 10 mg Documented By: MAGO Sodium Chloride (0.9 % Sodium Chloride Flush 3 Ml Syringe) [facility] Last Admin: 02/16/22 07:43 Dose: 3 ml Documented By: SOTO <Risa Bhandari PA-C - Last Filed: 02/16/22 08:13> Labs CBC & Chem 7: : 02/14/22 07:53 02/14/22 07:53 <Risa Bhandari PA-C - Last Filed: 02/16/22 08:13> Microbiology Microbiology Results: Microbiology 02/13/22 14:13 Blood Culture - Preliminary Blood - Venous No growth after 48 hours. 02/13/22 14:13 Blood Culture - Preliminary Blood - Venous No growth after 48 hours. <Risa Bhandari PA-C - Last Filed: 02/16/22 08:13> Procedures Date of Service Date of Service: 02/16/22 <Risa Bhandari PA-C - Last Filed: 02/16/22 08:13> Progress Note: A&P Assessment and plan (1) S/P laparoscopic appendectomy: Status: Acute <Risa Bhandari PA-C - Last Filed: 02/16/22 08:13> Assessment and Plan: Says he is ready to be discharged Tolerating diet well Abdominal pain well controlled Back pain much improved Has been ambulating Feels well overall Abdomen soft and benign Okay to DC Discharge instructions explained to patient Seen and examined independently - agree with JULIÁN Bhandari <Jared Castanon MD - Last Filed: 02/16/22 08:29> Assessment and Plan: 47 year old male who was admitted with acute appendicitis ow POD #2 s/p lap appy. Doing well post op. VSS. Abd exam remains benign with appropriate post op tenderness, incisions clean. Feels ready and is stable for discharge to home. Educated no heavy lifting, f/u in office in 2 weeks. <Risa Bhandari PA-C - Last Filed: 02/16/22 08:13> Time Spent With Patient Time: Total time spent is greater than 50% in coordination of care (as documented) at patient's floor/unit and/or counseling patient: <Risa Bhandari PA-C - Last Filed: 02/16/22 08:13> Quality Stroke Does the patient have a stroke diagnosis?: No <Risa Bhandari PA-C - Last Filed: 02/16/22 08:13> VTE Prior VTE?: No <Risa Bhandari PA-C - Last Filed: 02/16/22 08:13> VTE Risk Level:: Medical - moderate - high <Risa Bhandari PA-C - Last Filed: 02/16/22 08:13> VTE Device Contraindication: N/A - Device Ordered <Risa Bhandari PA-C - Last Filed: 02/16/22 08:13> VTE Drug Contraindication: N/A - Med Ordered <Risa Bhandari PA-C - Last Filed: 02/16/22 08:13>
--- NOTE | 2022-02-16 09:06 | MHC.CM.PN ---
PT MEDICALLY CLEARED FOR D/C HOME SELF CARE, PT WILL CALL FAMILY FOR TRANSPORT.
== END 2022-02-16 09:57 | disposition home or self-care (01) | DRG 225 ==
LOC: HO.ED 19:11 → HO.EDOVER 20:00 → HO.S3 20:25
PROVIDERS: Physician Assistant; Admitting Provider Surgery; Emergency Provider Emergency Medicine; PCP Nurse Practitioner Family; Visit Provider Surgery
PROC: 0DTJ4ZZ Resection of Appendix, Percutaneous Endoscopic Approach (ICD-10-PCS; CPT 44970; principal; 2022-02-14 10:40)
DX: K35.80 Unspecified acute appendicitis (principal); I10 Essential (primary) hypertension; Z20.822 Contact with and (suspected) exposure to COVID-19; Z79.51 Long term (current) use of inhaled steroids; R73.03 Prediabetes; Z79.84 Long term (current) use of oral hypoglycemic drugs; Z79.899 Other long term (current) drug therapy
CPT/HCPCS: 44970; 36415; 74177; 80048; 80076; 81003; 83605; 85025; 85027; 87040; 87635; 88304; 99285; J0131; J1170; J1885; J2270; J2405; J2543; J2795; J3010; Q9967

== ENCOUNTER 2023-11-26 15:01 | Outpatient (AMB) | payer BC, SELFPAY ==
[2023-11-26 15:03] VITALS: BP 138/80; PULSE 80; BMI 34.1
--- NOTE | 2023-11-26 15:03 | MHC.OFFVIS ---
Vital Signs 11/26/23 15:03 Height 6 ft Weight 251 lb 5.231 oz BMI 34.1 BP 138/80 Blood Pressure Location Rt brachial Position Sitting Pulse 80 Intake Visit Reasons: Colonoscopy Screening Intake Note: Flaco presents to in office new patient visit for colonoscopy screening. CC: Patient reports that last month he had an X ray done ordered by his PCP because he was having pain from buttocks. 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 male with past medical history of hypertension, prediabetes, status post laparoscopic appendectomy is here today for pre colonoscopy screening.? Patient was sent to us by his PCP.? This is his first colonoscopy screening.? Patient denies any gastrointestinal symptoms in the past or at present.? Denies any personal or family history of gastrointestinal disease, colon polyps, or CRC.? Denies history of difficulty with sedation or anesthesia in the past.? Negative for history of sleep apnea.? Denies any history of cardiac, renal, pulmonary, or hepatic disease.?? No history of infectious? diseases like hepatitis A, B, C, HIV or tuberculosis.? Patient is not on any anticoagulation [facility] Medical History Hypertension Pre-diabetes Surgical History History of laparoscopic appendectomy (~02/14/22) Family History (Updated 11/26/23 @ 15:23 by YOSHI Owens) Father Skin cancer (melanoma) Social History Household Members: Significant Other and Children Housing: House Do you presently have visiting nurse or other home services: No Comment: previously medicated with iv tylenol and dilaudid Patient Tobacco Use Status: Never used Tobacco service: No Current occupational status: employed Review of Systems Const Denies weight gain and Denies weight loss ENT Reports no additional complaints, Denies dysphagia and Denies odynophagia Card Reports no additional complaints Resp Reports no additional complaints GI Denies abdominal pain, Denies belching, Denies melena, Denies bloating, Denies change in bowel habits, Denies dysphagia, Denies excessive flatus, Denies dyspepsia, Denies heartburn, Denies diarrhea, Denies loose stools, Denies nausea, Denies odynophagia and Denies vomiting Reports no additional complaints Musc Reports no additional complaints Neuro Reports no additional complaints Psych Reports no additional complaints Endo Reports no additional complaints Physical Exam Const General: healthy appearing and no acute distress Nutritional Appearance: obese Orientation/consciousness: patient oriented x3 Resp Effort & Inspection: normal respiratory effort, able to speak in complete sentences, no tracheal deviation and symmetric chest movement Auscultation: clear to auscultation bilaterally Cardio Rate: regular rate GI Inspection: Yes normal to inspection, No distended and Yes obesity Palpation (GI): Soft to palpation, not firm, nontender and No hepatosplenomegaly present Auscultation: normal bowel sounds General: Yes no CVA tenderness Back/Spine/Pelvis Back: no CVA tenderness Skin General skin exam: elasticity normal, turgor normal and dry skin Neuro General: patient oriented x3 Psych Appearance: grossly normal Mental Status: mental status grossly normal Assessment & Plan Assessment & Plan (1) Screen for colon cancer: Code(s): Z12.11 - Encounter for screening for malignant neoplasm of colon Plan Patient denies any GI, cardiac or respiratory symptoms.? Denies any issues with anesthesia in the past.? Denies any history of sleep apnea.? No history infectious diseases in the past or present.? Not on any anticoagulation therapy.? No family or personal history of colon cancer or polyps.? Patient denies melena, hematochezia, unintentional weight loss or ribbon like stools.? Discussed at length the pre-procedure,? prep, diet & medications as well as what to expect prior, during and after the procedure.?? Stressed the importance of good bowel prep.? Recommended the use of Vaseline or Calmoseptine OTC & baby wipes with bowel movements to promote comfort.? ?Patient verbalizes understanding and agrees to plan of care.? He was given the opportunity to ask questions and all questions answered.? We will see him after the procedure.? Medications: New bisacodyl (Dulcolax (bisacodyl)) take 4 tabs at noon the day before your colonoscopy 20 mg (4 x 5 mg) PO ONCE 1 day 4 tabs 0RF Z12.11 - Encounter for screening for malignant neoplasm of colon polyethylene glycol 3350 (Miralax) As directed by gastroenterology department at [facility] 238 grams PO ONCE 238 grams 0RF Z12.11 - Encounter for screening for malignant neoplasm of colon Coding Level of Care Code New Pt Level 3 (12064) Diagnoses Screen for colon cancer Z12.11 Time Spent (min) 40 Comment 30 minutes spent with patient and additional 10 minutes spent reviewing his records
== END 2023-11-26 15:44 | disposition home or self-care (01) ==
PROVIDERS: PCP Nurse Practitioner Family; Visit Provider Nurse Practitioner Family
DX: Z01.818 Encounter for other preprocedural examination (principal); Z12.11 Encounter for screening for malignant neoplasm of colon
CPT/HCPCS: S0285

== ENCOUNTER → 2023-11-26 15:01 | Outpatient (BNVA) | payer BC, SELFPAY | PROVIDERS: PCP Nurse Practitioner Family; Visit Provider Nurse Practitioner Family ==

== ENCOUNTER 2024-05-17 14:18 | Emergency (ER) | payer BC, SELFPAY ==
--- NOTE | ~2024-05-17 | XR_ITS ---
CLINICAL HISTORY: midline lumbar pain, no trauma 3 views lumbar spine Comparison: None Findings: Normal alignment. Very mild levocurvature of the upper lumbar spine. No acute fractures or dislocation. Multilevel degenerative disc disease and facet osteoarthritis. IMPRESSION: No acute findings. This document has been electronically signed by: Vanessa Chamorro MD on 05/17/2024 15:51:58
--- NOTE | 2024-05-17 14:39 | ED.BACK ---
HPI - Back Pain/Injury General Chief Complaint: Back Pain/Injury Stated Complaint: lower back pain Time Seen by Provider: 05/17/24 18:00 Source: patient Limitations: no limitations History of Present Illness ED Provider: Melanie Ruby PA-C HPI Narrative: 49-year-old male with a history of hypertension and type 2 diabetes presents with lumbar back pain x1 week. Pain radiates down bilateral lower extremities at times, with the associated paresthesias of thighs that is intermittent. Denies weakness of lower extremity, saddle anesthesia, urinary retention or bowel incontinence. Patient states he performs a great deal of physical activity at work, there has been no new activity, no new heavy lifting, no trauma. Related Data Home Medications ?Medication ?Instructions ?Recorded ?Confirmed albuterol sulfate 90 mcg/actuation 2 puff inhalation Q6H PRN dyspnea 02/14/22 02/14/22 aerosol inhaler amlodipine 5 mg tablet 1 tab PO DAILY 02/14/22 02/14/22 fluticasone propionate 50 1 spray intranasal DAILY PRN 02/14/22 02/14/22 mcg/actuation nasal Allergy Symptoms spray,suspension lisinopril 30 mg tablet 1 tab PO DAILY 02/14/22 02/14/22 loratadine 10 mg tablet (Claritin) 10 mg PO DAILY 02/14/22 02/14/22 multivitamin 1 tab PO DAILY 02/14/22 02/14/22 semaglutide 1 mg/dose (4 mg/3 mL) mg subcut 11/26/23 subcutaneous pen injector (Ozempic) Previous Rx's ?Medication ?Instructions ?Recorded oxycodone 5 mg tablet 5 mg PO Q4H PRN pain (scale score 02/15/22 7-10) #24 tabs bisacodyl 5 mg tablet,delayed 20 mg (4 x 5 mg) PO ONCE 1 day #4 11/26/23 release (Dulcolax (bisacodyl)) tabs polyethylene glycol 3350 17 238 g PO ONCE #238 grams 11/26/23 gram/dose oral powder (Miralax) meloxicam 15 mg tablet 15 mg PO DAILY #7 tabs 05/17/24 methocarbamol 750 mg tablet 1,500 mg (2 x 750 mg) PO Q8H PRN 05/17/24 pain, moderate #30 tabs Allergies Allergy/AdvReac Type Severity Reaction Status Date / Time seafood Allergy Severe Hives Verified 05/17/24 14:43 Review of Systems Review of Systems: Yes all other systems are reviewed and are negative Constitutional: Constitutional: Denies fatigue and Denies fever(s) Cardiovascular: Cardiovascular: Denies chest pain Gastrointestinal: Gastrointestinal: Denies abdominal pain Genitourinary: Genitourinary: Denies urinary hesitancy Musculoskeletal: Musculoskeletal: Reports back pain, Denies numbness, Reports radiating pain into limb and Reports tingling Neurologic: Denies numbness and Reports tingling Endocrine: Endocrine: Denies fatigue PMFSH Past Medical History Attestation statement: The following information was validated with the patient. Medical History Hypertension Pre-diabetes Surgical History History of laparoscopic appendectomy (~02/14/22) Family History Family History Father Skin cancer (melanoma) Social History Social History Household Members: Significant Other and Children Housing: House Do you presently have visiting nurse or other home services: No Comment: previously medicated with iv tylenol and dilaudid Patient Tobacco Use Status: Never used Tobacco Advance Directives: No Advance Directives Information Provided: No Do you have a plan to hurt others: No Plan service: No Current occupational status: employed Physical Exam Vital Signs: Vital Signs: Last Vital Signs Temp 98.1 F 05/17/24 16:45 Pulse 74 05/17/24 16:45 Resp 17 05/17/24 16:45 BP 131/88 05/17/24 16:45 Pulse Ox 97 05/17/24 16:45 O2 Del Method Room Air 05/17/24 16:45 BMI result Body Mass Index 34.6 Const: Other: Alert, well-appearing Orientation/consciousness: patient oriented x3 Resp: Other: Nonlabored respiration Cardio: Other: Normal peripheral perfusion Skin: Other: Warm dry no rash Neuro: Other: Antalgic gait General: patient oriented x3, no focal motor deficits and CN's II-XI intact bilaterally Extrem: Other: Strength 5/5 bilateral lower extremities with resistance Psych: Other: Cooperative Course Course Course Narrative: This is a Rapid Medical Examination (RME) performed by Bo Russell PA-C in triage. Full HPI, ROS, assessment and treatment plan per primary provider in the Main ED. 49 yo male hx of HTN here for eval of 9/10 lower back pain radiating down both lower extremities x1 week. no known injury/ trauma. reports similar pain when he had meningitis. no fever, neck pain. no urinary symptoms. no red flag symptoms. taking Tylenol at home w/o relief. last dose last night. +midline lumbar spin pain, no step off deformity. ambulating w/ steady gait. Plan: xrs Medical Decision Making Medical Decision Making [facility] Narrative: 49-year-old male with a history of hypertension and type 2 diabetes presents with lumbar back pain x1 week. Pain radiates down bilateral lower extremities at times, with the associated paresthesias of thighs that is intermittent. Denies weakness of lower extremity, saddle anesthesia, urinary retention or bowel incontinence. Patient states he performs a great deal of physical activity at work, there has been no new activity, no new heavy lifting, no trauma. Problem: Diabetes and hypertension , repetitive active History: Per patient I have considered the following differential diagnoses: Lumbar strain, lumbar radiculopathy, cauda equina, SEA Plan: X-ray obtained from triage, the patient has arthritic changes. He is having symptoms of lumbar radiculopathy without red flag signs symptoms concerning for cord compression. Patient also has no risk factors beyond diabetes for epidural abscess, there has been an no recent intervention/injection, he tapia sno hx of IDVA, he is afebrile, and again without neuromuscular deficits. I have independently reviewed the following tests: X-ray lumbar spine: views lumbar spine Comparison: None Findings: Normal alignment. Very mild levocurvature of the upper lumbar spine. No acute fractures or dislocation. Multilevel degenerative disc disease and facet osteoarthritis. IMPRESSION: No acute findings. This document has been electronically signed by: Vanessa Chamorro MD on 05/17/2024 15:51:58 Discharge Plan Discharge Clinical Impression: Bilateral lumbar radiculopathy Patient Disposition: Home, Self-Care Instructions: Lumbar Radiculopathy (ED), Lower Back Exercises (ED) Additional Instructions: You are being treated for lumbar radiculopathy. See home care instructions. Use the meloxicam as directed, this is an anti-inflammatory. Use the methocarbamol, this is a muscle relaxant, as needed for further discomfort. To note the muscle relaxant we will cause drowsiness, do not drive or operate machinery while taking this medication. You will need to follow up with your primary care provider, you may require physical therapy as an outpatient. Prescriptions: New methocarbamol 750 mg tablet 1,500 mg PO Q8H PRN (Reason: pain, moderate) Qty: 30 0RF meloxicam 15 mg tablet 15 mg PO DAILY Qty: 7 0RF No Action multivitamin Tablet 1 tab PO DAILY amlodipine 5 mg tablet 1 tab PO DAILY lisinopril 30 mg tablet 1 tab PO DAILY albuterol sulfate 90 mcg/actuation HFA aerosol inhaler 2 puff INHALATION Q6H PRN (Reason: dyspnea) fluticasone propionate 50 mcg/actuation [place],Suspension 1 spray INTRANASAL DAILY PRN (Reason: Allergy Symptoms) Rx Instructions: administer into each nostril loratadine [Claritin] 10 mg Tablet 10 mg PO DAILY oxycodone 5 mg tablet 5 mg PO Q4H PRN (Reason: pain (scale score 7-10)) Qty: 24 0RF Rx Instructions: Partial Fill upon patient request. Ozempic 1 mg/dose (4 mg/3 mL) pen injector subcut bisacodyl [Dulcolax (bisacodyl)] 5 mg tablet,delayed release (DR/EC) 20 mg PO ONCE 1 Days Qty: 4 0RF Rx Instructions: take 4 tabs at noon the day before your colonoscopy polyethylene glycol 3350 [Miralax] 17 gram/dose powder 238 g PO ONCE Qty: 238 0RF Rx Instructions: As directed by gastroenterology department at [facility] Print Language: Setswana
[2024-05-17 14:42] VITALS: BP 144/97; PULSE 84; RESP 18; TEMP 36.6; O2SAT 98; BMI 34.6
[2024-05-17 16:45] VITALS: BP 131/88; PULSE 74; RESP 17; TEMP 36.7; O2SAT 97
[2024-05-17] MEDS: Ketorolac Tromethamine 15 MG/ML VIAL IM (19:21)
[2024-05-17] MEDS: methocarbamoL 750 MG TABLET 1500 MG PO (19:21)
[2024-05-17 19:29] VITALS: BP 131/88; PULSE 74; RESP 17; TEMP 36.7; O2SAT 97
== END 2024-05-17 19:30 | disposition home or self-care (01) ==
PROVIDERS: Emergency Provider Emergency Medicine; PCP Nurse Practitioner Family
DX: M54.16 Radiculopathy, lumbar region (principal); M54.50 Low back pain, unspecified; I10 Essential (primary) hypertension; E11.9 Type 2 diabetes mellitus without complications; Z79.899 Other long term (current) drug therapy
CPT/HCPCS: 72100; 96372; 99284; J1885

== ENCOUNTER → 2024-05-17 14:44 | Outpatient (BNV) | payer BC, SELFPAY | PROVIDERS: PCP Nurse Practitioner Family; Visit Provider Radiology Diagnostic Radiology | DX: M54.50 Low back pain, unspecified (principal) | CPT/HCPCS: 72100 ==

== ENCOUNTER 2024-07-04 08:51 | Day surgery (SDC) | payer BC, SELFPAY ==
--- NOTE | 2024-07-03 12:10 | HO.ANESPROP2 ---
Documented by User: Diana Orantes NP 07/03/24 12:11 HPI - Anesthesia Eval Consult details Narrative: 49yo M for Colonoscopy PMFSH Active Problems Active Problems: All Active Problems S/P laparoscopic appendectomy (Acute) Hypertension (Acute) Pre-diabetes (Acute) Abdominal pain (Acute) Acute appendicitis (Acute) Past Medical History Medical History Hypertension Pre-diabetes Family History Family History Father Skin cancer (melanoma) Family history of problems with anesthesia: No Surgical History Surgical History History of laparoscopic appendectomy (~02/14/22) History of Problems with Anesthesia: No Social History Social History Household Members: Significant Other and Children Housing: House Are you a primary care transport nurse to a significant other at home: No Do you presently have visiting nurse or other home services: No Comment: previously medicated with iv tylenol and dilaudid Patient Tobacco Use Status: Current someday Tobacco user Tobacco use type: Cigarette Smoked in Last 30 Days: Yes Patient Interested in Nicotine Replacement: No Have you been hit, kicked, punched, or otherwise hurt by someone within the past year? If so, by whom?: No Are you DNR?: No Advance Directives: No Advance Directives Information Provided: Yes Recently lost weight without trying: No Nutrition Risks: No Nutritional Risk service: No Current occupational status: employed Meds Allergies Allergy/AdvReac Type Severity Reaction Status Date / Time seafood Allergy Severe Hives Verified 07/04/24 10:33 Home Medications ?Medication ?Instructions ?Recorded ?Confirmed ?Last Taken ?Type albuterol sulfate 90 mcg/actuation 2 puff inhalation Q6H PRN dyspnea 02/14/22 07/04/24 02/12/22 History aerosol inhaler amlodipine 5 mg tablet 1 tab PO DAILY 02/14/22 07/04/24 07/04/24 History fluticasone propionate 50 1 spray intranasal DAILY PRN 02/14/22 07/04/24 02/12/22 History mcg/actuation nasal Allergy Symptoms spray,suspension lisinopril 30 mg tablet 1 tab PO DAILY 02/14/22 07/04/24 02/12/22 History loratadine 10 mg tablet (Claritin) 10 mg PO DAILY 02/14/22 07/04/24 02/12/22 History multivitamin 1 tab PO DAILY 02/14/22 07/04/24 02/12/22 History semaglutide 1 mg/dose (4 mg/3 mL) mg subcut 11/26/23 06/22/24 History subcutaneous pen injector (Ozempic) Assessment and Plan Assessment Anesthesia Assessment: Chart Reviewed Final Anesthetic Review Family History of Problems with Anesthesia: No History of Problems with Anesthesia: No Documented by User: Jerson Poole MD 07/04/24 11:10 COUNT INCLUDES THE [facility] Past Medical History Medical History Hypertension Pre-diabetes Family History Family History Father Skin cancer (melanoma) Surgical History Surgical History History of laparoscopic appendectomy (~02/14/22) Social History Social History Household Members: Significant Other and Children Housing: House Are you a primary care transport nurse to a significant other at home: No Do you presently have visiting nurse or other home services: No Comment: previously medicated with iv tylenol and dilaudid Patient Tobacco Use Status: Current someday Tobacco user Tobacco use type: Cigarette Smoked in Last 30 Days: Yes Patient Interested in Nicotine Replacement: No Have you been hit, kicked, punched, or otherwise hurt by someone within the past year? If so, by whom?: No Are you DNR?: No Advance Directives: No Advance Directives Information Provided: Yes Recently lost weight without trying: No Nutrition Risks: No Nutritional Risk service: No Current occupational status: employed Meds Allergies Allergy/AdvReac Type Severity Reaction Status Date / Time seafood Allergy Severe Hives Verified 07/04/24 10:33 Home Medications ?Medication ?Instructions ?Recorded ?Confirmed ?Last Taken ?Type albuterol sulfate 90 mcg/actuation 2 puff inhalation Q6H PRN dyspnea 02/14/22 07/04/24 02/12/22 History aerosol inhaler amlodipine 5 mg tablet 1 tab PO DAILY 02/14/22 07/04/24 07/04/24 History fluticasone propionate 50 1 spray intranasal DAILY PRN 02/14/22 07/04/24 02/12/22 History mcg/actuation nasal Allergy Symptoms spray,suspension lisinopril 30 mg tablet 1 tab PO DAILY 02/14/22 07/04/24 02/12/22 History loratadine 10 mg tablet (Claritin) 10 mg PO DAILY 02/14/22 07/04/24 02/12/22 History multivitamin 1 tab PO DAILY 02/14/22 07/04/24 02/12/22 History semaglutide 1 mg/dose (4 mg/3 mL) mg subcut 11/26/23 06/22/24 History subcutaneous pen injector (Ozempic) Exam Airway Mallampati Class: II TM Dist: >3cm Neck ROM: Full Assessment and Plan Assessment Anesthesia Assessment: Anesthesia Plan Discussed Final Anesthetic Review NPO: Yes ASA Class: II Final Preanesthetic Review: No Changes in Pt Med Stat, Meds/Allgs Chart Reviewed, Consent Obtained/Reviewed, Anes Risks/Benef Reviewed and DNR Form (If Appl.) Patient Risk: Intermediate Procedure Risk: Low Anesthetic Plan Anesthetic Plan: TIVA Disposition: Standard PACU
[2024-07-04 10:36] VITALS: BMI 31.9
[2024-07-04] MEDS: Lactated Ringers 1,000 ML 100 ML IVCONT (10:40)
[2024-07-04 11:00] LABS: Glucose, Whole Blood 97 mg/dL (60-115)
[2024-07-04 11:02] VITALS: BP 145/90; PULSE 76; RESP 18; TEMP 36.8; O2SAT 97
--- NOTE | 2024-07-04 11:17 | MHC.SHP ---
Pre-Procedural Eval Section A - 24 Hr Update-Section A only Date of Service: 07/04/24 Section B - Complete if H&P > 30 days Chief Complaint: Encounter for screening for malignant neoplasm of Relevant Family History (Specify if Yes): No Relevant Social History: Tobacco Use Present Medications: see Short Stay Collaborative assessment Medical History: Significant History (Hypertension Pre-diabetes) History of Previous Operations: Relevant previous surgery/procedure and date(s) (History of laparoscopic appendectomy (~02/14/22)) Allergies: Allergies Allergy/AdvReac Type Severity Reaction Status Date / Time seafood Allergy Severe Hives Verified 07/04/24 10:33 Review of Systems Sugical H&P ROS: Negative: Constitution, Cardiovascular, Respiratory, Neurological, Psychiatric, Hem-Onc, Allergic/Immunologic, Gastrointestinal, Genitourinary, Musculoskeletal, Integumentary, Endocrine and Eyes/Ears/Nose/Throat Exam Surgical H&P Exam: Normal: HEENT, Normal: Heart, Normal: Lungs, Normal: Extremities, Normal: Abdomen, Normal: Skin and Normal: Neurological Plan Diagnosis/Plan: Unchanged I have reviewed the history and physical and performed a pertinent physical examination on my patient. No changes have occurred unless specified. Time Spent With Patient Time: Total time managing care of this patient today ____ minutes.
--- NOTE | 2024-07-04 11:52 | HO.OPN-COLON ---
Colonoscopy Operative Note Operative Note Date of Service: 07/04/24 Narrative: Operative Information Procedure Description: Colonoscopy Indication: screening Anesthesia: MAC COLONOSCOPY Instrument: Olympus variable stiffness ADULT scope 190L Colonoscopy Monitoring: Vital signs and clinical assessment, continuous EKG monitoring, Pulse oximetry, Carbon Dioxide monitoring and blood pressure monitoring were done throughout the procedure. Colon withdrawal time was 17 minutes. Procedure: The patient was placed in the left lateral decubitis position and pre-procedure medications were administered. After a digital rectal examination of the ano-rectum, the video colonoscope was inserted into the rectum and advanced through the colon to the cecum/TI. The colonoscope was slowly withdrawn in a retrograde panoramic fashion and the colon mucosa was carefully examined including a retroflexed view of the rectum. Findings and interventions are described below. Procedure Difficulty: easy Findings: Terminal Ileum- superficially intubated -nml Cecum: x 2 sessile polyps 3-4 mm removed with cold forceps Ascending Colon: normal Transverse Colon -normal Descending Colon:normal Sigmoid Colon: normal Rectum: Retroflexion with small internal hemorrhoids seen, grade I Anorectum - normal Intervention: cold forceps Colon preparation: [place] Bowel Preparation Scale Right colon; 2 Transverse colon: 2 Left colon; 2 (0 = Unprepared colon segment with mucosa not seen due to solid stool that cannot be cleared. 1 = Portion of mucosa of the colon segment seen, but other areas of the colon segment not well seen due to staining, residual stool and/or opaque liquid. 2 = Minor amount of residual staining, small fragments of stool and/or opaque liquid, but mucosa of colon segment seen well. 3 = Entire mucosa of colon segment seen well with no residual staining, small fragments of stool or opaque liquid) Impression and Post Procedure Diagnosis: colon polyps internal hemorrhoids Plan: High fiber diet leaflet Avoid straining at stool, epsom salts and sitz bath, anusol supps or cream Repeat Colonoscopy in 5 years if adenomatous, 10 yrs if non adenomatous or earlier if clinically indicated Above findings were reviewed with the patient and relevant handouts were provided if indicated.
[2024-07-04 11:58] VITALS: BP 118/76; PULSE 78; RESP 18; TEMP 36.6; O2SAT 97
[2024-07-04 12:13] VITALS: BP 129/90; PULSE 80; RESP 16; TEMP 36.6; O2SAT 98
== END 2024-07-04 12:36 | disposition home or self-care (01) ==
PROVIDERS: PCP Nurse Practitioner Family; Visit Provider Internal Medicine Gastroenterology
PROC: 0DJD8ZZ Inspection of Lower Intestinal Tract, Via Natural or Artificial Opening Endoscopic (ICD-10-PCS; CPT 45378; principal; 2024-07-04 11:40)
DX: Z12.11 Encounter for screening for malignant neoplasm of colon (principal); D12.0 Benign neoplasm of cecum; K64.0 First degree hemorrhoids; E11.9 Type 2 diabetes mellitus without complications; I10 Essential (primary) hypertension
CPT/HCPCS: 45380; 82947; 88305; J2003; J2704

== ENCOUNTER → 2024-07-04 08:51 | Outpatient (BNV) | payer BC, SELFPAY | PROVIDERS: PCP Nurse Practitioner Family; Visit Provider Internal Medicine Gastroenterology | DX: Z12.11 Encounter for screening for malignant neoplasm of colon (principal); D12.0 Benign neoplasm of cecum; K64.0 First degree hemorrhoids | CPT/HCPCS: 45380 ==